=== PATIENT | female | born 1995 | race Two or more races ===

== ENCOUNTER 2021-04-19 09:32 | Inpatient (IN) ==
--- NOTE | 2021-04-19 10:04 | Emergency Department Note ---
History of Present Illness General Chief Complaint: Abdominal Pain Stated Complaint: ABDOMINAL PAIN Time Seen by Provider: 04/19/21 10:00 Source: patient and family Mode of arrival: ambulatory Limitations: no limitations History of Present Illness Provider Complaint: abdominal pain Onset (ago): week(s) Pain Consistency: constant Location: RUQ Radiation: none Migration to: no migration Severity: severe Maximum Pain Intensity: 9 Quality: + other (Strong) Relieved By: + nothing Exacerbated By: + eating Associated Symptoms: + nausea and + vomiting; no fever, no chills, no dysuria, no hematemesis, no hematuria, no headache, no back pain, no chest pain and no numbness Treatments prior to arrival: tylenol Related Data Last Menstrual Period: Last week Home Medications Medication Instructions Recorded Confirmed Type No Known Home Medications 04/19/21 04/19/21 History Allergies Allergy/AdvReac Type Severity Reaction Status Date / Time No Known Allergies Allergy Unverified 04/19/21 11:56 Past Med/Surg History Medical History (Updated 04/19/21 @ 16:37 by Bernabe Muro MD) No pertinent past medical history Surgical History (Updated 04/19/21 @ 10:41 by Bernabe Muro MD) No pertinent past surgical history Social History (Updated 04/19/21 @ 10:41 by Bernabe Muro MD) Smoking Status: Never smoker Hx Alcohol Use: Yes Hx Substance Use: No Preferred Language: Togolese Communication Tools: IPad Rig Supervisor Required: Yes Beliefs That Will Affect Care: None Current Living Situation: Family Feels Safe at Home: Yes Review of Systems See HPI for pertinent positives & negatives. and A total of 10 systems reviewed and were otherwise negative Physical Exam Vital Signs: Vital Signs - 24 hr 04/19/21 09:48 04/19/21 10:47 04/19/21 11:00 Temperature 36.4 C L Temperature Source Temporal Artery Sc an Pulse Rate 54 L 53 L 56 L Pulse Rate [Apical ] 54 L Pulse Rate from Sp O2 Sensor 53 L 56 L Pulse Rhythm Regular Pulse Rhythm [Apic al] Regular Pulse Strength Normal Pulse Strength [Ap ical] Normal Respiratory Rate 20 20 17 Respiratory Effort / Characteristics Non-Labored Non-Labored Sponta neous Respiratory Depth Normal Normal Respiratory Patter n Regular Regular Blood Pressure 113/56 L 112/67 100/59 L Blood Pressure [Le ft Arm] 100/59 L Blood Pressure Sherrell n 75 82 72 Blood Pressure Sherrell n [Left Arm] 72 Blood Pressure Pos ition Sitting Pulse Oximetry 99 98 98 Oxygen Delivery Me thod Room Air Room Air Sepsis Recent Feve r Within 48 Hours No Sepsis New/Unexpla ined Change in Men jessica Status No Sepsis Action Take n by Nursing No Action Required Physical Exam: GENERAL: Wearing a mask. NAD, non-toxic. EYE EXAM: Normal conjunctiva. PERRL, no anisocoria and EOM's grossly intact w/o pain. NECK: Supple, no nuchal rigidity, no adenopathy, non-tender. No signs of meningismus. LUNGS: Clear to auscultation. Normal chest wall mechanics. HEART: NSR, no MRG. ABDOMEN: Abdomen soft, right upper quadrant and epigastric pain, no lower abdominal pain, normo-active bowel sounds, no masses, no rebound or guarding. BACK: No CVA TTP. SKIN: No rashes and no bruising. UPPER EXTREMITIES: Upper extremities are grossly normal. LOWER EXTREMITIES: Grossly normal, no edema. NEURO EXAM: A&O x3, cranial nerves II-XII grossly intact, normal speech, moves all 4 extremities on command w/o issue. Course Course Cardiac monitoring: An order was placed for continuous cardiac monitoring. The monitor shows a rate of 65 with sinus rhythm. Administered Medications Ampicillin Sodium/Sulbactam Sodium 1,500 mg/ Sodium Chloride 104 mls @ 200 mls/hr IV Q6H [facility]; Protocol Stop: 04/29/21 15:59 Last Infusion: 04/19/21 16:27 Dose: 0 mls/hr Documented by: [id number] Admin: 04/19/21 15:41 Dose: 200 mls/hr Documented by: [id number] Dextrose/Lactated Ringer's (D5w And Lactated Ringers) 1,000 mls @ 125 mls/hr IV .Q8H MAHESH Stop: 04/20/21 06:35 Last Admin: 04/19/21 15:06 Dose: 125 mls/hr Documented by: [id number] Ondansetron HCl (Ondansetron Inj 2 Mg/Ml 2 Ml Vial) 4 mg IV Q6H PRN PRN Reason: Nausea Stop: 05/19/21 13:26 Last Admin: 04/19/21 15:06 Dose: 4 mg Documented by: [id number] Discontinued Medications Sodium Chloride (Nss) 500 mls @ 999 mls/hr IV .Q31M STA Stop: 04/19/21 10:55 Last Infusion: 04/19/21 11:26 Dose: 0 mls/hr Documented by: [id number] Admin: 04/19/21 10:40 Dose: 999 mls/hr Documented by: [id number] Famotidine (Pepcid 20mg Iv Push) 20 mg in 5 mls @ 2.5 mls/min IV NOW STA Stop: 04/19/21 10:26 Last Admin: 04/19/21 10:40 Dose: 2.5 mls/min Documented by: [id number] Morphine Sulfate (Morphine Sulfate 4 Mg/Ml 1 Ml Carp\Vial) 4 mg IV NOW STA Stop: 04/19/21 11:36 Last Admin: 04/19/21 12:14 Dose: 4 mg Documented by: [id number] Ondansetron HCl (Ondansetron Inj 2 Mg/Ml 2 Ml Vial) 4 mg IV NOW STA Stop: 04/19/21 10:26 Last Admin: 04/19/21 10:40 Dose: 4 mg Documented by: [id number] Medical Decision Making Differential Diagnosis Appendicitis, ovarian cyst, ovarian torsion, ectopic , TOA, PID, infections, diverticulitis, UTI, obstruction, mesenteric ischemia, aortic pathology, inflammatory bowel disease, renal colic, PUD, pancreatitis, biliary pathology, hernia, volvulus, constipation, as well as other pathologies. Medical Records Attestation: I reviewed the patient's medical records. Home Medications Current Medication List: was personally reviewed by me Laboratory Data Attestation: I reviewed the patient's lab results. Result diagrams: 04/19/21 10:41 04/19/21 10:41 Lab Results 04/19/21 04/19/21 04/19/21 Range/Units 10:41 10:41 10:41 WBC 3.10 L (4.8-10.8) K/uL RBC 4.79 (4.2-5.4) M/uL Hgb 15.0 (12.0-16.0) g/dL Hct 43.6 (37-47) % MCV 91.0 (80-100) fL MCH 31.3 (25-34) pg MCHC 34.4 (32-36) g/dL RDW Std Deviation 40.5 (36.4-46.3) fL RDW Coeff of Dorie 12.1 (11.5-14.5) % Plt Count 314 (130-400) K/uL MPV 10.1 (7.4-10.4) fL Immature Gran % (Auto) 0.0 % Neut % (Auto) 51.0 % Lymph % (Auto) 33.9 % [place] % (Auto) 11.9 % Eos % (Auto) 3.2 % Baso % (Auto) 0.0 % Neut # (Auto) 1.58 (1.4-6.5) K/uL Lymph # (Auto) 1.05 L (1.2-3.4) K/uL [place] # (Auto) 0.37 (0.11-0.59) K/uL Eos # (Auto) 0.10 (0-0.5) K/uL Baso # (Auto) 0.00 (0-0.2) K/uL Immature Gran # (Auto) 0.00 (0.00-0.02) K/uL Sodium 138 (136-145) mmol/L Potassium 3.9 (3.5-5.1) mmol/L Chloride 109 H (98-107) mmol/L Carbon Dioxide 27 (21-32) mmol/L Anion Gap 2.0 L (3-11) BUN 10 (7-18) mg/dl Creatinine 0.64 (0.6-1.2) mg/dl Est Cr Clr Drug Dosing Not Reportable Est GFR ( Amer) 144.8 ml/min Est GFR (Non-Af Amer) 124.9 ml/min BUN/Creatinine Ratio 15.0 (10-20) Glucose 104 H (70-99) mg/dl Calcium 9.1 (8.5-10.1) mg/dl Total Bilirubin 2.8 H (0.2-1) mg/dl AST 991 H (15-37) U/L ALT 1090 H (12-78) U/L Alkaline Phosphatase 172 H (45-117) U/L Troponin I < 0.015 (0-0.045) ng/ml Total Protein 7.4 (6.4-8.2) gm/dl Albumin 4.0 (3.4-5.0) gm/dl Globulin 3.4 (2.5-4.0) gm/dl Albumin/Globulin Ratio 1.2 (0.9-2) Lipase 106 (73-393) U/L Urine Color Dark Yellow Urine Appearance Clear (Clear) Urine pH 6.5 (4.5-7.5) Ur Specific [place] 1.017 (1.000-1.030) Urine Protein Negative (Negative) Urine Glucose (UA) Negative (Negative) Urine Ketones Negative (Negative) Urine Blood Negative (Negative) Urine Nitrite Negative (Negative) Urine Bilirubin 1+ H (Negative) Urine Urobilinogen Negative (Negative) Ur Leukocyte Esterase Negative (Negative) Urine Test (Negative) COVID-19 Eval Order SARS-CoV-2 (PCR) (Negative) 04/19/21 04/19/21 04/19/21 Range/Units 10:41 12:13 12:13 WBC (4.8-10.8) K/uL RBC (4.2-5.4) M/uL Hgb (12.0-16.0) g/dL Hct (37-47) % MCV (80-100) fL MCH (25-34) pg MCHC (32-36) g/dL RDW Std Deviation (36.4-46.3) fL RDW Coeff of Dorie (11.5-14.5) % Plt Count (130-400) K/uL MPV (7.4-10.4) fL Immature Gran % (Auto) % Neut % (Auto) % Lymph % (Auto) % [place] % (Auto) % Eos % (Auto) % Baso % (Auto) % Neut # (Auto) (1.4-6.5) K/uL Lymph # (Auto) (1.2-3.4) K/uL [place] # (Auto) (0.11-0.59) K/uL Eos # (Auto) (0-0.5) K/uL Baso # (Auto) (0-0.2) K/uL Immature Gran # (Auto) (0.00-0.02) K/uL Sodium (136-145) mmol/L Potassium (3.5-5.1) mmol/L Chloride (98-107) mmol/L Carbon Dioxide (21-32) mmol/L Anion Gap (3-11) BUN (7-18) mg/dl Creatinine (0.6-1.2) mg/dl Est Cr Clr Drug Dosing Est GFR ( Amer) ml/min Est GFR (Non-Af Amer) ml/min BUN/Creatinine Ratio (10-20) Glucose (70-99) mg/dl Calcium (8.5-10.1) mg/dl Total Bilirubin (0.2-1) mg/dl AST (15-37) U/L ALT (12-78) U/L Alkaline Phosphatase (45-117) U/L Troponin I (0-0.045) ng/ml Total Protein (6.4-8.2) gm/dl Albumin (3.4-5.0) gm/dl Globulin (2.5-4.0) gm/dl Albumin/Globulin Ratio (0.9-2) Lipase (73-393) U/L Urine Color Urine Appearance (Clear) Urine pH (4.5-7.5) Ur Specific [place] (1.000-1.030) Urine Protein (Negative) Urine Glucose (UA) (Negative) Urine Ketones (Negative) Urine Blood (Negative) Urine Nitrite (Negative) Urine Bilirubin (Negative) Urine Urobilinogen (Negative) Ur Leukocyte Esterase (Negative) Urine Test Negative (Negative) COVID-19 Eval Order Covid19 at [facility] SARS-CoV-2 (PCR) NEGATIVE (Negative) Imaging Data Radiologist's Impression: Gallbladder Ultrasound 04/19/21 10:25 US gallbladder CLINICAL HISTORY: RUQ/epigastric pain COMPARISON STUDY: No previous studies for comparison. FINDINGS: No hepatic lesions are present. There is mild intrahepatic biliary ductal dilatation. The common bile duct is dilated, measuring 1.1 cm in caliber. No common bile duct calculi are identified although these may be occult by sonography. There are multiple gallstones within the gallbladder including a nonmobile gallstones within the gallbladder neck as well as stones within the phrygian cap. Moderate gallbladder wall thickening is noted. Sonographic Gamez sign was reported. The pancreatic body is normal. Head and tail are obscured. There is no right hydronephrosis. IMPRESSION: 1. Cholelithiasis with gallbladder wall thickening and sonographic Gamez sign. These findings raise the possibility of acute cholecystitis. 2. Biliary ductal dilatation. No common bile duct calculi identified although these may be occult by sonography and correlation with liver function tests is recommended. 3. Partially obscured pancreas. ACT 112: Negative or not required by law. Electronically signed by: Dwayne Carranza M.D. 04/19/2021 11:28 AM MDM Narrative Patient does present with at bedside due to concern for right upper quadrant epigastric pain has been going on for greater than 1 week. It seems to be worsening with eating. Patient localizes to right upper quadrant and epigastric area. No recent sick contacts but [place] the [place] Tylenol has not improved her symptoms. The patient did have one episode of vomiting. No blood in the vomit or stool. No dysuria or hematuria. No history of kidney stones. No prior history of surgeries no medical problems no allergies. Patient was seen at [facility] and referred here for further evaluation and treatment. Blood work was obtained along with a right upper quadrant ultrasound the patient was treated symptomatically. Patient does have transaminitis with elevated bilirubin. Lipase is normal. There is concern for gallstones given that the patient does have a likely acute cholecystitis. Patient also may have an obstruction secondary to gallstones given the patient's elevated LFTs. I did speak with the on-call general surgeon Dr. Herzog who recommended speaking with medicine and GI will will likely need to be consulted. I did speak with the hospitalist Dr. Lee. The patient was admitted to the medicine service. Impression & Plan Acute cholecystitis due to biliary calculus, Choledocholithiasis Discharge Plan Visit Data Chief Complaint: Abdominal Pain Stated Complaint: ABDOMINAL PAIN ED Provider: Bernabe Muro Discharge Problem: Acute cholecystitis due to biliary calculus, Choledocholithiasis Patient Disposition: Admitted As Inpatient Discharge Instructions Interventions: ED Discharge Assessment Last Done: 04/19/21 14:31
[2021-04-19] MEDS ORDERED: FAMOTIDINE 20MG IV PUSH 20 MG/5 ML SYR IV STA (10:25)
[2021-04-19] MEDS ORDERED: SODIUM CHLORIDE 0.9% 500 ML IV STA (10:25)
[2021-04-19] MEDS ORDERED: ONDANSETRON INJ 2 MG/ML 2 ML VIAL IV STA (10:25)
[2021-04-19 10:54] LABS: Eosinophils % (auto) 3.2 %; Hematocrit (blood only) 43.6 % (37-47); Lymphocytes # (auto) 1.05 K/uL (1.2-3.4); Lymphocytes % (auto) 33.9 %; Mean Corpuscular Hemoglobin 31.3 pg (25-34); Mean Corpuscular Hgb Conc 34.4 g/dL (32-36); Mean Platelet Volume 10.1 fL (7.4-10.4); Monocytes # (auto) 0.37 K/uL (0.11-0.59); Monocytes % (auto) 11.9 %; Neutrophils # (auto) 1.58 K/uL (1.4-6.5); Platelet Count 314 K/uL (130-400); RDW Coefficient of Variation 12.1 % (11.5-14.5); RDW Standard Deviation 40.5 fL (36.4-46.3); Red Blood Count 4.79 M/uL (4.2-5.4)
[2021-04-19 10:58] LABS: Appearance Urine Clear (Clear); Blood Urine Negative (Negative); Color Urine Dark Yellow; Glucose Urine UA Negative (Negative); Ketones Urine Negative (Negative); Leukocyte Esterase Urine Negative (Negative); Nitrite Urine Negative (Negative); Protein Urine Negative (Negative); Specific Gravity Urine 1.017 (1.000-1.030); Urobilinogen Urine Negative (Negative); pH Urine 6.5 (4.5-7.5)
[2021-04-19 11:02] LABS: Bilirubin Urine 1+ (Negative); Pregnancy Test, Urine Negative (Negative)
[2021-04-19 11:16] LABS: Blood Urea Nitrogen 10 mg/dl (7-18); Calcium 9.1 mg/dl (8.5-10.1); Carbon Dioxide 27 mmol/L (21-32); Chloride 109 mmol/L (98-107); Est GFR (African American) 144.8 ml/min; Est GFR (Non-African American) 124.9 ml/min; Glucose 104 mg/dl (70-99); Lipase 106 U/L (73-393); Potassium 3.9 mmol/L (3.5-5.1); Sodium 138 mmol/L (136-145)
[2021-04-19 11:24] LABS: Alanine Aminotransferase 1090 U/L (12-78); Albumin Globulin Ratio 1.2 (0.9-2); Alkaline Phosphatase 172 U/L (45-117); Aspartate Aminotransferase 991 U/L (15-37); Bilirubin,Total 2.8 mg/dl (0.2-1); Globulin 3.4 gm/dl (2.5-4.0); Total Protein 7.4 gm/dl (6.4-8.2); Troponin I < 0.015 ng/ml (0-0.045)
--- NOTE | 2021-04-19 11:29 | Ultrasound Report ---
US gallbladder CLINICAL HISTORY: RUQ/epigastric pain COMPARISON STUDY: No previous studies for comparison. FINDINGS: No hepatic lesions are present. There is mild intrahepatic biliary ductal dilatation. The c ommon bile duct is dilated, measuring 1.1 cm in caliber. No common bile duct calculi are identified a lthough these may be occult by sonography. There are multiple gallstones within the gallbladder inclu ding a nonmobile gallstones within the gallbladder neck as well as stones within the phrygian cap. Mo derate gallbladder wall thickening is noted. Sonographic Gamez sign was reported. The pancreatic bod y is normal. Head and tail are obscured. There is no right hydronephrosis. IMPRESSION: 1. Cholelithiasis with gallbladder wall thickening and sonographic Gamez sign. These findings raise the possibility of acute cholecystitis. 2. Biliary ductal dilatation. No common bile duct calculi identified although these may be occult by sonography and correlation with liver function tests is recommended. 3. Partially obscured pancreas. ACT 112: Negative or not required by law. Electronically signed by: Dwayne Carranza M.D. 04/19/2021 11:28 AM
[2021-04-19] MEDS ORDERED: MoRPHine SULFATE 4 MG/ML 1 ML CARP\\VIAL IV STA (11:35)
--- NOTE | 2021-04-19 13:44 | Surgery Consultation ---
Date of Consultation April 19, 2021 Assessment & Plan (1) Acute cholecystitis due to biliary calculus: Patient with acute cholecystitis and dilated common bile duct with abnormal liver function studies She will need a GI evaluation and possible ERCP At some point we will proceed with laparoscopic cholecystectomy which I have discussed with the patient's And he discussed it with her as she does not speak Nepalese well She appears to be comfortable at present time History of Present Illness History of Present Illness 25-year-old female with abdominal pain and right upper quadrant pain Abnormal ultrasound and laboratories consistent with acute cholecystitis and possible Common bile duct obstruction Her LFTs are significantly abnormal Ultrasound shows a thickened gallbladder with multiple stones positive Gamez sign Allergies Allergy/AdvReac Type Severity Reaction Status Date / Time No Known Allergies Allergy Unverified 04/19/21 11:56 Home Medications Medication Instructions Recorded Confirmed Type No Known Home Medications 04/19/21 04/19/21 History Patient History Medical History (Updated 04/19/21 @ 13:43 by Kel Herzog MD, FACS) No pertinent past medical history Surgical History (Updated 04/19/21 @ 10:41 by Bernabe Muro MD) No pertinent past surgical history Social History (Updated 04/19/21 @ 10:41 by Bernabe Muro MD) Smoking Status: Never smoker Hx Alcohol Use: No Hx Substance Use: No Preferred Language: Ethiopian Feels Safe at Home: Yes Review of Systems Review of Systems: All systems reviewed & are unremarkable except as noted in HPI & below Physical Exam Physical Exam: Right upper quadrant pain to palpation Constitutional: well developed and well nourished; no acute distress Eyes: + anicteric sclerae Respiratory: normal respiratory effort; no respiratory distress Cardiovascular: Rate/Rhythm: regular rate Gastrointestinal (Abdomen): Percussion/Palpation: abdomen soft Musculoskeletal: Gait: normal gait Skin: no rashes, warm and dry Neurologic: awake Psychiatric: Orientation: alert Results & Data ([facility]) Vital Signs (Past 12 Hours) Vital Signs Temp Pulse Pulse Resp BP BP Pulse Ox 04/19/21 13:33 51 L 16 105/72 99 04/19/21 11:00 56 L 17 100/59 L 98 04/19/21 10:47 53 L 54 L 20 112/67 100/59 L 98 04/19/21 09:48 36.4 C L 54 L 20 113/56 L 99 Laboratory Results I reviewed the patient's laboratories Diagnostic Findings I reviewed the patient's ultrasound PG Care Time/CCT Total # of Minutes Spent Total Time Spent with Patient: Total time spent is greater than 50% in coordination of care (as documented) at patient's floor/unit and/or counseling patient: Coding Level of Care Code 23695 Inpt Consult Level 4 Diagnoses Acute cholecystitis due to biliary calculus K80.00
--- NOTE | 2021-04-19 13:53 | History & Physical Report ---
Date of Service April 19, 2021 Assessment & Plan (1) Acute cholecystitis due to biliary calculus: Plan: 25 y/o F with no active medical issues. Presents with 2-3 days of upper quadrant abdominal pain and nausea. An abdominal US was obtained in the ER demonstrating cholelithiasis and cholecystitis. There is biliary duct dilation although a calculus could not be seen. Labs are consistent with an obstructive process and otherwise notable for mild leukopenia. The pt was afebrile on arrival. The pt was evaluated by surgery and will need a cholecystectomy. This will be preceded by a GI evaluation as she may need an ERCP and stone extraction initially. NPO, IVF, antiemetics, pain control, antibiotics provided. Full code - SCDs Total time for this admit including review of labs, meds, imaging, records - discussion with pt, surgeon and ER attending - 35 min History of Present Illness Chief Complaint: Abdominal pain and nausea Primary Care Provider: NO PCP 25 y/o F with no active medical issues. Presents with 2-3 days of upper quadrant abdominal pain and nausea. An abdominal US was obtained in the ER d emonstrating cholelithiasis and cholecystitis. There is biliary duct dilation although a calculus could not be seen. Labs are consistent with an obstructive process and otherwise notable for mild leukopenia. The pt was afebrile on arrival. PMH/surgical: She denies any active medical issues and has not previously had surgery. Social: Does not smoke, rare ETOH. She hails from [place] and speaks Occitan only Family: Both parents are alive and well. Allergies Allergy/AdvReac Type Severity Reaction Status Date / Time No Known Allergies Allergy Unverified 04/19/21 11:56 Home Medications Medication Instructions Recorded Confirmed Type No Known Home Medications 04/19/21 04/19/21 History Past Med/Surg History Medical History (Updated 04/19/21 @ 13:43 by Kel Herzog MD, FACS) No pertinent past medical history Surgical History (Updated 04/19/21 @ 10:41 by Bernabe Muro MD) No pertinent past surgical history Social History (Updated 04/19/21 @ 10:41 by Bernabe Muro MD) Smoking Status: Never smoker Hx Alcohol Use: No Hx Substance Use: No Preferred Language: Occitan Feels Safe at Home: Yes Review of Systems Review of Systems: Gen: Denies fevers, night sweats, rigors, fatigue, malaise, weight loss/gain ENT: Denies congestion, throat pain, hearing loss Eyes: Denies acute visual changes CV: Denies CP, palpitations Pulmonary: Denies SOB, cough, wheezing GI: Abdominal pain and nausea as above Neuro: Denies acute or unilateral weakness, acute gait impairment, headache or acute visual changes Musculoskeletal: Denies joint pain, inflammation Endocrine: Denies polydipsia, polyuria Skin: Denies acute rashes or ulcers Physical Exam Physical Exam: General: AAO x 3, no distress ENT: No erythema or exudates, no thrush Eyes: WHITNEY, EOMI Head and neck: Normocephalic, atraumatic, No JVD, neck is supple. Chest/heart: Nontender, S1,2, RRR, no murmurs, no gallops Lungs: CTAB, no wheezing or crackles Abdomen: There is uper quadrant tenderness Neuro: AAO x 3, speech is clear, no unilateral weakness or loss of sensation, coordination intact Musculoskeletal: No joint inflammation, muscle tenderness, FROM Skin: No acute rashes or ulcers Extremities: No clubbing, cyanosis, edema Results & Data Results & Data ([facility]) Vital Signs (Past 12 Hours) Vital Signs Temp Pulse Pulse Resp BP BP Pulse Ox 04/19/21 13:33 51 L 16 105/72 99 04/19/21 11:00 56 L 17 100/59 L 98 04/19/21 10:47 53 L 54 L 20 112/67 100/59 L 98 04/19/21 09:48 97.5 F L 54 L 20 113/56 L [address] abd: 1. Cholelithiasis with gallbladder wall thickening and sonographic Gamez sign. These findings raise the possibility of acute cholecystitis. 2. Biliary ductal dilatation. No common bile duct calculi identified although these may be occult by sonography and correlation with liver function tests is recommended. 3. Partially obscured pancreas. Code Status & VTE Plan VTE Prophylaxis Plan VTE Prophylaxis will be ordered: Yes PG Care Time/CCT Total # of Minutes Spent Total Time Spent with Patient: Total time spent is greater than 50% in coordination of care (as documented) at patient's floor/unit and/or counseling patient: Coding Level of Care Code 47538 Initial Inpt Care Lvl 3 Diagnoses Acute cholecystitis due to biliary calculus K80.00
[2021-04-19] MEDS: ONDANSETRON INJ 2 MG/ML 2 ML VIAL IV PRN (15:06)
[2021-04-19] MEDS: D5W AND LACTATED RINGERS 1,000 ML IV SCH (15:06)
[2021-04-19] MEDS: AMPICILLIN/SULBACTAM SOD 1,500 MG in 0.9 % SODIUM CHLORIDE 100 ML IV SCH ×2 (15:41→22:20)
--- NOTE | 2021-04-19 16:32 | Gastrointestinal Consultation ---
Date of Consultation April 19, 2021 Assessment & Plan (1) Choledocholithiasis: Patient with a history of abdominal pain and a significant elevation in her liver associated enzymes. The liver test elevation is slightly out of range for what would be normally expected with choledocholithiasis. However the patient is quite young and this is a distinct possibility given the dilated common bile duct and cholelithiasis seen on the ultrasound. I would suggest that we arrange ERCP for tomorrow morning and make arrangements for a stat MRCP to better evaluate her common bile duct. Recommendations N.p.o. Continue antibiotic coverage Stat MRCP please ERCP arranged for tomorrow Please avoid anticoagulants Please call with any questions or concerns History of Present Illness Reason for Consultation: Abdominal pain Requesting Physician: Dr. Herzog and Dr. Lee Attending Physician: Zane Lee MD History of Present Illness Translation services were made available to this patient as she speaks limited Kenyan. I was able to use a assistant speech language pathologist via an iPad. The patient is a 25-year-old female who has had abdominal discomfort for approximately 1 week. She notes that the pain is mid epigastric and can wax and wane throughout the day. The pain is typically worse with meals. She notes that she is also had some nausea but denies any emesis. She has no prior surgical history fevers chills sweats or medication changes. The patient does not have any tattoos nor recent history of IV drug abuse. Allergies Allergy/AdvReac Type Severity Reaction Status Date / Time No Known Allergies Allergy Unverified 04/19/21 11:56 Home Medications Medication Instructions Recorded Confirmed Type No Known Home Medications 04/19/21 04/19/21 History Patient History Medical History (Updated 04/19/21 @ 16:31 by Cabrera Salazar DO) No pertinent past medical history Surgical History (Updated 04/19/21 @ 10:41 by Bernabe Muro MD) No pertinent past surgical history Social History (Updated 04/19/21 @ 10:41 by Bernabe Muro MD) Smoking Status: Never smoker Hx Alcohol Use: Yes Hx Substance Use: No Preferred Language: Hungarian Communication Tools: IPad Vest Backer Required: Yes Beliefs That Will Affect Care: None Current Living Situation: Family Feels Safe at Home: Yes Review of Systems Constitutional: + malaise; no fever and no sweats Respiratory: no change in sputum and no hemoptysis Cardiovascular: no chest pain and no dyspnea at rest Gastrointestinal: + abdominal pain and + nausea Genitourinary: no urinary frequency Integumentary: no rash Neurologic: no falls Psychiatric: no hopelessness Endocrine: no polydipsia Hematologic / Lymphatic: no coagulopathy Physical Exam Constitutional: WD/WN, vitals as above Eyes: mild scleral icterus noted Respiratory: normal respiratory effort, lungs clear to auscultation Cardiovascular: RRR, no murmur, no edema Gastrointestinal (Abdomen): Inspection/Auscultation: normal bowel sounds; abdomen not distended Percussion/Palpation: + abdomen tender and abdomen soft; abdomen not rigid Musculoskeletal: no cyanosis or clubbing, extremities motor strength 5/5 Skin: no rashes, warm and dry Results & Data ([facility]) Vital Signs (Past 12 Hours) Vital Signs Temp Pulse Pulse Pulse Resp BP BP 04/19/21 15:29 36.4 C L 63 15 04/19/21 13:33 51 L 16 105/72 04/19/21 11:00 56 L 17 100/59 L 04/19/21 10:47 53 L 54 L 20 112/67 100/59 L 04/19/21 09:48 36.4 C L 54 L 20 113/56 L BP Pulse Ox 04/19/21 15:29 110/75 98 04/19/21 13:33 99 04/19/21 11:00 98 04/19/21 10:47 98 04/19/21 09:48 99 Laboratory Results Laboratory Results - last 24 hr 04/19/21 04/19/21 04/19/21 10:41 10:41 10:41 WBC 3.10 L RBC 4.79 Hgb 15.0 Hct 43.6 MCV 91.0 MCH 31.3 MCHC 34.4 RDW Std Deviation 40.5 RDW Coeff of Dorie 12.1 Plt Count 314 MPV 10.1 Immature Gran % (Auto) 0.0 Neut % (Auto) 51.0 Lymph % (Auto) 33.9 [place] % (Auto) 11.9 Eos % (Auto) 3.2 Baso % (Auto) 0.0 Neut # (Auto) 1.58 Lymph # (Auto) 1.05 L [place] # (Auto) 0.37 Eos # (Auto) 0.10 Baso # (Auto) 0.00 Immature Gran # (Auto) 0.00 Sodium 138 Potassium 3.9 Chloride 109 H Carbon Dioxide 27 Anion Gap 2.0 L BUN 10 Creatinine 0.64 Est Cr Clr Drug Dosing Not Reportable Est GFR ( Amer) 144.8 Est GFR (Non-Af Amer) 124.9 BUN/Creatinine Ratio 15.0 Glucose 104 H Calcium 9.1 Total Bilirubin 2.8 H AST 991 H ALT 1090 H Alkaline Phosphatase 172 H Troponin I < 0.015 Total Protein 7.4 Albumin 4.0 Globulin 3.4 Albumin/Globulin Ratio 1.2 Lipase 106 Urine Color Dark Yellow Urine Appearance Clear Urine pH 6.5 Ur Specific [place] 1.017 Urine Protein Negative Urine Glucose (UA) Negative Urine Ketones Negative Urine Blood Negative Urine Nitrite Negative Urine Bilirubin 1+ H Urine Urobilinogen Negative Ur Leukocyte Esterase Negative Urine Test COVID-19 Eval Order SARS-CoV-2 (PCR) 04/19/21 04/19/21 04/19/21 10:41 12:13 12:13 WBC RBC Hgb Hct MCV MCH MCHC RDW Std Deviation RDW Coeff of Dorie Plt Count MPV Immature Gran % (Auto) Neut % (Auto) Lymph % (Auto) [place] % (Auto) Eos % (Auto) Baso % (Auto) Neut # (Auto) Lymph # (Auto) [place] # (Auto) Eos # (Auto) Baso # (Auto) Immature Gran # (Auto) Sodium Potassium Chloride Carbon Dioxide Anion Gap BUN Creatinine Est Cr Clr Drug Dosing Est GFR ( Amer) Est GFR (Non-Af Amer) BUN/Creatinine Ratio Glucose Calcium Total Bilirubin AST ALT Alkaline Phosphatase Troponin I Total Protein Albumin Globulin Albumin/Globulin Ratio Lipase Urine Color Urine Appearance Urine pH Ur Specific [place] Urine Protein Urine Glucose (UA) Urine Ketones Urine Blood Urine Nitrite Urine Bilirubin Urine Urobilinogen Ur Leukocyte Esterase Urine Test Negative COVID-19 Eval Order Covid19 at [facility] SARS-CoV-2 (PCR) NEGATIVE Diagnostic Findings US gallbladder CLINICAL HISTORY: RUQ/epigastric pain COMPARISON STUDY: No previous studies for comparison. FINDINGS: No hepatic lesions are present. There is mild intrahepatic biliary ductal dilatation. The common bile duct is dilated, measuring 1.1 cm in caliber. No common bile duct calculi are identified although these may be occult by sonography. There are multiple gallstones within the gallbladder including a nonmobile gallstones within the gallbladder neck as well as stones within the phrygian cap. Moderate gallbladder wall thickening is noted. Sonographic Gamez sign was reported. The pancreatic body is normal. Head and tail are obscured. There is no right hydronephrosis. IMPRESSION: 1. Cholelithiasis with gallbladder wall thickening and sonographic Gamez sign. These findings raise the possibility of acute cholecystitis. 2. Biliary ductal dilatation. No common bile duct calculi identified although these may be occult by sonography and correlation with liver function tests is recommended. 3. Partially obscured pancreas.
--- NOTE | 2021-04-19 18:00 | Magnetic Resonance Report ---
MRCP CLINICAL HISTORY: Right upper quadrant pain. Epigastric pain. TECHNIQUE: Utilizing a 1.5 Katerin magnet and dedicated coil, multiplanar, multiecho imaging of the up er abdomen was performed utilizing heavily T2 weighted pulsing sequences without IV contrast. COMPARISON STUDY: Right upper quadrant ultrasound performed earlier today. FINDINGS: There are multiple gallstones within the gallbladder, including a 2.1 cm stone within a phr ygian cap. The gallbladder is distended. There is gallbladder wall thickening with pericholecystic fl uid. Note is made of moderate biliary ductal dilatation. The common bile duct measures 1.1 cm in davey can. Multiple distal common bile duct calculi measure up to approximately 6 mm. There is no pancreati c ductal dilatation. There is no peripancreatic infiltration or fluid. No hepatic lesions are identif ied on unenhanced exam. Unenhanced images of the spleen, adrenal glands and kidneys are normal. There is no abdominal lymphadenopathy. IMPRESSION: 1. Multiple distal common bile duct calculi which measure up to approximately 6 mm. Associated modera te biliary ductal dilatation. 2. Cholelithiasis with gallbladder distention and gallbladder wall thickening with pericholecystic fl uid. The findings suggest acute cholecystitis. ACT 112: Negative or not required by law. Electronically signed by: Dwayne Carranza M.D. 04/19/2021 5:59 PM
[2021-04-20] MEDS: D5W AND LACTATED RINGERS 1,000 ML IV SCH (00:25)
[2021-04-20] MEDS: AMPICILLIN/SULBACTAM SOD 1,500 MG in 0.9 % SODIUM CHLORIDE 100 ML IV SCH ×4 (03:40→21:11)
[2021-04-20] MEDS ORDERED: MIDAZOLAM HCL 1 MG/ML 2ML VIAL ONE (08:12)
[2021-04-20] MEDS ORDERED: PROPOFOL IV EMULSION 10 MG/ML 20 ML VIAL IV ONE (08:12)
[2021-04-20] MEDS ORDERED: GLYCOPYRROLATE 0.2 MG/ML VIAL ONE (08:12)
[2021-04-20] MEDS ORDERED: ONDANSETRON INJ 2 MG/ML 2 ML VIAL ONE (08:12)
[2021-04-20] MEDS ORDERED: ROCURONIUM BROMIDE 10 MG/ML 5 ML VIAL IV ONE (08:12)
[2021-04-20] MEDS ORDERED: LARYING-O-JET KIT (LTA) ONE (08:12)
[2021-04-20] MEDS ORDERED: fentaNYL citrate 100 MCG/2 ML VIAL ONE ×2 (08:12→10:22)
[2021-04-20] MEDS ORDERED: NEOSTIGMINE METHYLSULFATE 1 MG/ML 10ML VIAL ONE (08:12)
[2021-04-20] MEDS ORDERED: LIDOCAINE 2% 2 ML VIAL/AMP(20MG/ML) INFIL ONE (08:12)
[2021-04-20] MEDS ORDERED: DEXAMETHASONE SOD INJ 4 MG/ML VIAL ONE (08:13)
[2021-04-20] MEDS ORDERED: BUPIVACAINE 0.5 % 5 MG/1 ML MPF 30ML VIAL ONE (08:17)
--- NOTE | 2021-04-20 08:29 | History & Physical Bridge Note ---
Date of Service April 20, 2021 History & Physical Bridge Note I have examined the patient, reviewed the History & Physical and in the interval since the performance of the History & Physical I have noted the following changes of clinical significance: no changes noted. The patient and I have discussed the risks and benefits of the procedure to include bleeding, infection, perforation, pancreatitis and need for follow-up studies. A speech and language specialist was used for her consent process.
--- NOTE | 2021-04-20 08:42 | Anesthesiology Consultation ---
Date of Service April 20, 2021 Cymro speaking. Managed Services Sales Consultant used. Assessment & Plan (1) Encounter for pre-operative examination: Chart Review Chart Review: Acceptable Risk for Surgery and Patient NOT seen in Pre Admission Testing Consults Requested none ASA ASA2 Proposed Anesthesia Anesthesia Type: General Risk / Benefits Reviewed With: PT / POA / Parent / Guardian, Accepts Plan and Informed Consent Obtained (used welt pocket machine operator) History Surgery Operation Date: 04/20/21 10:00 Proposed Procedures p Endoscopic Retrograde Cholangiopancreato - DO kyaw [place] Laparoscopic Cholecystectomy - Kel Herzog MD, FACS Height/Weight Height: 4 ft 11 in Weight: 54.6 kg Allergies Allergy/AdvReac Type Severity Reaction Status Date / Time No Known Allergies Allergy Unverified 04/19/21 11:56 Medications Home Medications Medication Instructions Recorded Confirmed Last Taken No Known Home Medications 04/19/21 04/19/21 Unknown Active Medications Generic Name Dose Route Start Last Admin Trade Name Freq PRN Reason Stop Dose Admin Ampicillin Sodium/Sulbactam 104 mls @ 200 mls/hr 04/19/21 16:00 04/20/21 04:12 Sodium 1,500 mg/ Sodium IV 04/29/21 15:59 Infused Chloride Q6H MAHESH Infusion Protocol Ondansetron HCl 4 mg 04/19/21 13:27 04/19/21 15:06 Ondansetron Inj 2 Mg/Ml 2 Ml Vial IV 05/19/21 13:26 4 mg Q6H PRN Administration Nausea NPO Date Last Intake of Fluids: 04/19/21 Time Last Intake of Fluids: 19:00 Date Last Intake of Solids: 04/18/21 Time Last Intake of Solids: 20:00 Past Medical History Medical History (Updated 04/20/21 @ 08:54 by Wilbert Yang MD) Acute cholecystitis due to biliary calculus Exercise / Class Metabolic Activity II 4-5 Yardwork/Stairs/Walk up hill Past Surgical History Surgical History (Updated 04/19/21 @ 10:41 by Bernabe Muro MD) No pertinent past surgical history Past Anesthesia History No Hx of Anesthesia Complications and No Family Hx of Anesthesia Complications History of PONV No Hx of PONV and No Hx of Motion Sickness Social History Smoking Status: Never smoker Hx Alcohol Use: Yes alcohol intake frequency: holidays/special occasions only Hx Substance Use: No substance use type: does not use Review of Systems no chest pain or sob Physical Exam Vital Signs Last Vital Signs Temp 36.9 C 04/20/21 07:12 Pulse 85 04/20/21 07:12 Resp 16 04/20/21 07:12 BP 99/62 L 04/20/21 07:12 Pulse Ox 93 04/20/21 07:12 ENMT Mouth: no TMJ abnormality Thyromental Distance: > or= 3.5 Finger Breadths Mallampati Class: II Neck normal visual inspection Respiratory normal respiratory effort Auscultation: lungs clear to auscultation bilaterally Cardiovascular Rate/Rhythm: regular rate and regular rhythm Neurologic moves all extremities Psychiatric Orientation: alert and oriented x 3 Testing Laboratory Results 04/19/21 10:41 04/19/21 10:41 Urine Color Dark Yellow 04/19/21 10:41 Urine Appearance Clear (Clear) 04/19/21 10:41 Urine pH 6.5 (4.5-7.5) 04/19/21 10:41 Ur Specific [place] 1.017 (1.000-1.030) 04/19/21 10:41 Urine Protein Negative (Negative) 04/19/21 10:41 Urine Glucose (UA) Negative (Negative) 04/19/21 10:41 Urine Ketones Negative (Negative) 04/19/21 10:41 Urine Nitrite Negative (Negative) 04/19/21 10:41 Ur Leukocyte Esterase Negative (Negative) 04/19/21 10:41 Urine Test Negative (Negative) 04/19/21 10:41 04/19/21 10:41 Urine Test Negative
[2021-04-20] MEDS ORDERED: ONDANSETRON INJ 2 MG/ML 2 ML VIAL IV PRN ×2 (08:54→11:37)
[2021-04-20] MEDS ORDERED: fentaNYL citrate 100 MCG/2 ML VIAL IV PRN (08:54)
[2021-04-20] MEDS ORDERED: MEPERIDINE HCL 25 MG/ML CARP/VIAL IV PRN (08:54)
[2021-04-20] MEDS ORDERED: PHENYLEPHRINE 100MCG/ML 5ML SYR IV PRN (08:54)
[2021-04-20] MEDS ORDERED: HYDROmorphone INJ 1 MG/ML SYRINGE IV PRN (08:54)
[2021-04-20] MEDS ORDERED: ATROPINE SULFATE 0.1 MG/ML 10ML SYR IV PRN (08:54)
[2021-04-20] MEDS ORDERED: LABETALOL HCL IV 5 MG/ML 20ML IV PRN (08:54)
[2021-04-20] MEDS ORDERED: ePHEDrine sulfate 50 MG/ML AMP IV PRN (08:54)
--- NOTE | 2021-04-20 08:57 | History & Physical Bridge Note ---
Date of Service April 20, 2021 History & Physical Bridge Note I have examined the patient, reviewed the History & Physical and in the interval since the performance of the History & Physical I have noted the following changes of clinical significance: no changes noted
[2021-04-20] MEDS ORDERED: ePHEDrine sulfate 50 MG/ML SYR ONE (09:09)
[2021-04-20] MEDS ORDERED: INDOMETHACIN 50 MG SUPP PR ONE (09:09)
--- NOTE | 2021-04-20 09:44 | Post Operative Brief Note ---
Immediate Post Op Note v1 Date of Surgery April 20, 2021 Pre & Post Diagnosis Operation Date: 04/20/21 10:00 Pre-Op Diagnosis: Choledocholithiasis Post-Op Diagnosis: Choledocholithiasis I identified the patient and participated in the time-out.: Yes Procedure Operation Date: 04/20/21 10:00 Actual Procedures p Endoscopic Retrograde Cholangiopancreatography(Not Applicable) - Cabrera Salazar DO Surgeon Cabrera Salazar DO Mushroom Growing Supervisor none Estimated Blood Loss 0 Findings Consistent with Post-Op Diagnosis
--- NOTE | 2021-04-20 09:48 | GI REPORT ---
Patient Name: Tati Mckeon Procedure Date: 04/20/2021 8:58 AM Date of : 1995 Admit Type: Inpatient Age: 25 Gender: Female Attending MD: Cabrera Salazar DO Procedure: ERCP Providers: Cabrera Salazar DO Referring MD: FORTINO JACQUES Indications: Abdominal pain of suspected biliary origin, Abnormal MRCP Medicines: General Anesthesia Complications: No immediate complications. Estimated blood loss: Minimal. Estimated Blood Loss: Estimated blood loss was minimal. Procedure: Pre-Anesthesia Assessment: - Prior to the procedure, a History and Physical was performed, and patient medications, allergies and sensitivities were reviewed. The patient's tolerance of previous anesthesia was reviewed. - The risks and benefits of the procedure and the sedation options and risks were discussed with the patient. All questions were answered and informed consent was obtained. - Patient identification and proposed procedure were verified prior to the procedure by the physician, the nurse and the collating machine operator. The procedure was verified in the procedure room. - Pre-procedure physical examination revealed no contraindications to sedation. - ASA Grade Assessment: II - A patient with mild systemic disease. - After reviewing the risks and benefits, the patient was deemed in satisfactory condition to undergo the procedure. - The anesthesia plan was to use general anesthesia. - Immediately prior to administration of medications, the patient was re-assessed for adequacy to receive sedatives. - The heart rate, respiratory rate, oxygen saturations, blood pressure, adequacy of pulmonary ventilation, and response to care were monitored throughout the procedure. - The physical status of the patient was re-assessed after the procedure. After obtaining informed consent, the scope was passed under direct vision. Throughout the procedure, the patient's blood pressure, pulse, and oxygen saturations were monitored continuously. The Scope was introduced through the mouth, and advanced to the duodenum and used to inject contrast into the bile duct. The ERCP was accomplished without difficulty. The patient tolerated the procedure well. Findings: The oncology physician assistant film was normal. The esophagus was successfully intubated under direct vision without detailed examination of the pharynx, larynx, and associated structures, and upper GI tract. The upper GI tract was grossly normal. The major papilla contained a stone. The bile duct was deeply cannulated with the short-nosed traction sphincterotome and guidewire. Contrast was injected. I personally interpreted the bile duct images. Contrast extended to the hepatic ducts. The main bile duct was mildly dilated, with a stone causing an obstruction. The largest diameter was 10 mm. The lower third of the main bile duct contained filling defect(s) thought to be a stone. Biliary sphincterotomy was made with a Fusion OMNI sphincterotome using ERBE electrocautery. There was no post-sphincterotomy bleeding. To discover objects, the biliary tree was swept with a 12 mm balloon and 15 mm balloon starting at the bifurcation. Many stones were removed. No stones remained. The endoscope was withdrawn from the patient. The total fluoroscopy exposure time was 1 minute and 29 seconds. Indomethacin 100 mg was given via suppository to decrease the risk of post-ERCP pancreatitis (PEP). Impression: - A stone was seen in the major papilla. - Choledocholithiasis was found. Complete removal was accomplished by biliary sphincterotomy and balloon extraction. - Indomethacin given to decrease risk of post-ERCP pancreatitis. Recommendation: - Avoid aspirin and nonsteroidal anti-inflammatory medicines for 1 week. - Clear liquid diet. - Observe patient's clinical course. Would suggest daily liver enzymes. Cabrera Salazar D.O. Cabrera Salazar, 04/20/2021 9:48:39 AM This report has been signed electronically. Note Initiated On: 04/20/2021 8:58 AM Number of Addenda: 0 I attest to the content of the Intraoperative Record and orders documented therein, exceptions below {[id number]}
--- NOTE | 2021-04-20 10:32 | Post Operative Brief Note ---
PG Immediate Post Op with CF Date of Surgery April 20, 2021 Pre & Post Diagnosis Operation Date: 04/20/21 10:00 Pre-Op Diagnosis: Choledocholithiasis; Acute Cholesystitis Post-Op Diagnosis: Choledocholithiasis; Acute Cholesystitis I identified the patient and participated in the time-out.: Yes Procedure Operation Date: 04/20/21 10:00 Actual Procedures p Endoscopic Retrograde Cholangiopancreatography(Not Applicable) - DO kyaw [place] Laparoscopic Cholecystectomy(Not Applicable) - Kel Herzog MD, FACS Surgeon Kel Herzog MD, FACS Inclined Railway Operator none Estimated Blood Loss 10 Findings Consistent with Post-Op Diagnosis Specimens Specimen Description: A. Gallbladder
[2021-04-20] MEDS ORDERED: ACETAMINOPHEN 1,000 MG/100 ML VIAL IV ONE ×2 (10:34→14:15)
--- NOTE | 2021-04-20 11:23 | Anesthesiology Progress Note ---
Date of Service April 20, 2021 Anesthesia Post Procedure Vital Signs Vital Signs: Temp Pulse Pulse Resp BP BP Pulse Ox 04/20/21 11:10 36.0 C L 62 15 126/86 95 04/20/21 11:00 56 L 16 123/82 99 04/20/21 10:50 54 L 15 106/69 99 04/20/21 10:40 36.3 C L 63 14 109/59 L 97 04/20/21 07:12 36.9 C 85 16 99/62 L 93 04/19/21 22:35 36.8 C 73 16 129/69 97 04/19/21 15:29 36.4 C L 63 15 110/75 98 04/19/21 13:33 51 L 16 105/72 99 Pain Intensity Right Upper Abdomen: Pain Intensity: 1 Transfer of Care Handoff Completed per policy Notes Mental Status: alert / awake / arousable Patient Amnestic to Procedure: Yes Nausea / Vomiting: adequately controlled Pain: adequately controlled Airway Patency, RR, SpO2: stable & adequate BP & HR: stable & adequate Hydration State: stable & adequate Anesthetic Complications: no major complications apparent and Pt Satisfied with anesthetic care Notes: The patient is awake and comfortable.
[2021-04-20] MEDS ORDERED: PROMETHAZINE HCL 12.5 MG in SODIUM CHLORIDE 0.9% 50 ML IV PRN (11:37)
[2021-04-20] MEDS ORDERED: PROMETHAZINE HCL 25 MG in SODIUM CHLORIDE 0.9% 50 ML IV PRN (11:37)
[2021-04-20] MEDS ORDERED: HYDROCODONE/ACETAMOPHEN 5/325MG TAB PO PRN (11:37)
[2021-04-20] MEDS: SODIUM CHLORIDE 0.9% 1000ML 1,000 ML IV SCH ×2 (12:12→23:20)
[2021-04-20] MEDS: ONDANSETRON INJ 2 MG/ML 2 ML VIAL IV PRN ×2 (12:12→17:14)
--- NOTE | 2021-04-20 12:17 | Operative Report (OR) ---
DATE OF PROCEDURE: 04/20/2021 NAME OF OPERATION: Laparoscopic cholecystectomy. PREOPERATIVE DIAGNOSIS: Acute cholecystitis. POSTOPERATIVE DIAGNOSIS: Acute cholecystitis. STAFF SURGEON: Kel Herzog MD. ANESTHESIA: General. DESCRIPTION OF PROCEDURE: The patient was brought in the operating room and placed on the operating table in supine position. Her abdomen was prepped and draped in the usual fashion. Actually, this w as after the patient had undergone an ERCP with stone removal from the common bile duct by Dr. Salazar . After her abdomen was prepped and draped, pneumatic stockings and orogastric tube were in place. 0.5% plain Marcaine was used to anesthetize all incisions. Incision was made above the umbilicus, ca rrying dissection down to the fascia, placing a Veress needle producing pneumoperitoneum. Under visu alization after 11 mm port placed, three 5 mm ports were placed, one cephalad and two laterally. Gal lbladder was grasped and retracted. It was very edematous and swollen consistent with acute cholecys titis. There were chronic adhesions to the gallbladder consistent with chronic inflammation. These were taken down. Dissection carried out the la nena hepatis, identifying a dilated cystic duct. As a note, I did decompress the gallbladder of bile, which was clear, indicating hydrops. Cystic duct was clipped and transected. The cystic artery was identified, clipped and transected. Then, the gallbla dder dissected away from the liver bed in the usual fashion. There was significant edema in the post erior wall. After appropriate hemostasis and irrigation, the gallbladder was placed in an Endobag, r emoved through the umbilical site. I did have to enlarge the skin and fascial incisions to remove th e large gallbladder. The fascia at the umbilicus closed using 0 PDS suture, subcutaneous tissue tay pproximated using 2-0 plain suture, then the skin reapproximated at all incisions using subcuticular 4-0 Monocryl and Dermabond. The patient was transferred to recovery room in stable condition. Job ID: [id number]
--- NOTE | 2021-04-20 13:12 | Fluoroscopy Report ---
FL ERCP biliary ductal CLINICAL HISTORY: ERCP IN OR/[facility] COMPARISON STUDY: Right upper quadrant ultrasound and MRCP April 19, 2021. FLUOROSCOPY TIME: 1 minute and 29 seconds. FLUOROSCOPIC IMAGES: 16 FINDINGS: Fluoroscopy was provided during ERCP. These images demonstrate cannulation of the common bi le duct. Filling defects within the distal common bile duct suggest calculi. Balloon sweep through th e common bile duct was performed. Intrahepatic bile ducts are minimally opacified. IMPRESSION: Fluoroscopy provided during ERCP. ACT 112: Negative or not required by law. Electronically signed by: Dwayne Carranza M.D. 04/20/2021 1:10 PM
[2021-04-20] MEDS: HYDROmorphone INJ 0.5 MG/0.5 ML SYR IV PRN ×2 (13:34→17:12)
[2021-04-20] MEDS ORDERED: ACETAMINOPHEN 1000 MG/100 ML IV IV ONE (14:03)
--- NOTE | 2021-04-20 17:37 | Communication Note ---
Date of Service: April 20, 2021 Patient briefly seen after just coming back from the OR. She is actively vomiting and excessively somnolent. She was admitted early this morning
--- NOTE | 2021-04-20 17:49 | Hospitalist Progress Note ---
Date of Service April 20, 2021 Assessment & Plan (1) Acute cholecystitis due to biliary calculus: Plan: 25 y/o F with no active medical issues. Presents with 2-3 days of upper quadrant abdominal pain and nausea. An abdominal US was obtained in the ER demonstrating cholelithiasis and cholecystitis. There is biliary duct dilation although a calculus could not be seen. Labs are consistent with an obstructive process and otherwise notable for mild leukopenia. The pt was afebrile on arrival. The patient was seen by both general surgery and GI and is status post ERCP/cholecystectomy (2) Choledocholithiasis: Plan: s/p ERCP and cholecystectomy (3) Vomiting: Plan: * Likely related to anesthesia * Antiemetics on board * Will follow (4) Elevated LFTs: Plan: * Likely secondary to choledocholithiasis * Follow-up labs in a.m. to trend * Should improve s/p ERCP Plan: * Treat vomiting with antiemetics (likely anesthesia induced) * Advance diet as tolerated * Trend LFTs * If patient tolerating oral intake and LFTs improved, consider likely discharge tomorrow Admission and Anticipated Discharge Date Admission Date: April 19, 2021 Subjective Patient seen on daily rounds today. History unobtainable from patient as she is just back from the OR thus is somnolent but arousable, she is actively vomiting, and she does not speak Cambodian. History obtained from the chart. She is a 25-year-old relatively healthy woman who presented to the ED after a 3 to 4-day period of abdominal pain with associated nausea. Lab data showed elevated LFTs with a total bilirubin of 2.8, AST 991, ALT 1090. Her lipase was normal. Ultrasound showed cholelithiasis with gallbladder wall thickening and mild perihepatic biliary ductal dilatation and a positive Gamez sign consistent with acute cholecystitis. In addition, there was biliary ductal dilatation. MRCP done showed multiple distal common bile duct calculi in addition to findings consistent consistent with cholecystitis Patient was subsequently hospitalized and subsequently underwent ERCP along with cholecystectomy by Drs. Salazar and Mino). She had an uneventful perioperative course but is currently vomiting. Does have promethazine and Zofran on order. Nurse actively administering. Review of Systems Review of Systems: unobtainable at present Physical Exam Physical Exam: limited as patient actively vomiting Genl: patient actively vomiting. She is somnolent but arousable Heart: no assessed as patient vomiting Lungs: no assessed as patient vomiting Abd: not assesed. Results & Data Results & Data ([facility]) Vital Signs (Past 12 Hours) Vital Signs Temp Pulse Pulse Resp BP Pulse Ox 04/20/21 14:31 36.8 C 59 L 16 121/78 92 04/20/21 13:27 36.6 C 64 16 129/89 98 04/20/21 12:27 36.8 C 64 16 131/87 98 04/20/21 12:02 36.7 C 60 16 143/90 H 96 04/20/21 11:30 36.4 C L 67 15 143/88 H 96 04/20/21 11:20 36.0 C L 63 16 123/86 96 04/20/21 11:10 36.0 C L 62 15 126/86 95 04/20/21 11:00 56 L 16 123/82 99 04/20/21 10:50 54 L 15 106/69 99 04/20/21 10:40 36.3 C L 63 14 109/59 L 97 04/20/21 07:12 36.9 C 85 16 99/62 L 93 Laboratory Results admission labs reviewed Diagnostic Findings admission diagnostics reviewed PG Care Time/CCT Total # of Minutes Spent Total Time Spent with Patient: Total time spent is greater than 50% in co ordination of care (as documented) at patient's floor/unit and/or counseling patient: Coding [place] [address] Subseq Hosp Care Lvl 1 Patient Type Established Medical Decision Making Straight Forward Diagnoses Acute cholecystitis due to biliary calculus K80.00 Vomiting R11.10 Elevated LFTs R79.89 Choledocholithiasis K80.50
--- NOTE | 2021-04-20 20:38 | Communication Note ---
Date of Service: April 20, 2021 Called to bedside by nursing staff for concerns of emesis with blood in it. Patient has been having multiple rounds/bouts of emesis since waking from surger y this afternoon. Patient reportedly had had 3 bouts of emesis prior to this current bloody one, all relatively small in nature and none of the previous ones contained blood. Upon my presentation to bedside, patient endorsed some abdominal pain associated around the incisions, with main concerns regarding the blood in her vomit. Did note that she was feeling slightly better following some of the nausea medicine but is nervous after surgery. On my examination, abdomen was soft and non-distended, positive bowel sounds, but with incisional tenderness. Incisions were clean dry and intact with dermabond over the top, no surrounding erythema, or fluctuance. Given the close time frame from laproscopic surgery with emesis, ordered KUB to further elucidate potential post-operative ileus concerns. Given potential post-operative ileus concerns will hold the diet at this point in time and continue to monitor. Anti-emetics available PRN to help control nausea and vomiting. Resident Activity Tracking Resident Involvement: Resident Care Provided Care Provided: Adult [facility]
--- NOTE | 2021-04-20 21:22 | XRay Report ---
XR KUB/Abdomen 1 view CLINICAL HISTORY: N/v abdominal pain COMPARISON STUDY: No previous studies for comparison. FINDINGS: Nondilated gas and stool-filled loops of bowel are seen throughout the abdomen There is no evidence of free intra-abdominal air, however please note that supine abdominal radiograp hy has limited ability for evaluation for the free intra-abdominal air. No abnormal calcifications are seen. Cholecystectomy clips are seen within the right upper quadrant. IMPRESSION: 1. Nonobstructive bowel gas pattern. ACT 112: Negative or not required by law. The above report was generated using voice recognition software. It may contain grammatical, syntax o r spelling errors. Electronically signed by: Jennifer Headley DO 04/20/2021 9:21 PM
[2021-04-20] MEDS ORDERED: PANTOprazole 40 MG in SYRINGE 0 ML IV STA (21:39)
[2021-04-20] MEDS ORDERED: METOCLOPRAMIDE HCL INJ 5 MG/ML 2 ML VIAL IV PRN (22:02)
--- NOTE | 2021-04-20 22:18 | Communication Note ---
Date of Service: April 20, 2021 I was asked to evaluate this patient by the [facility] physician group hospitalist resident at approximately 9:45 PM. I arrived at the bedside at approximately 9:55 PM. Chart was reviewed. Earlier today this patient underwent an ERCP by Dr. Salazar. ERCP report was reviewed and patient was noted to have a normal upper GI tract. A sphincterotomy was performed in the biliary tree was evaluated for choledocholithiasis and numerous gallstones were removed. No post sphincterotomy bleeding was noted. Following this procedure Dr. Herzog performed a laparoscopic cholecystectomy. Since patient's arrival to the floor she has had numerous bouts of reported hematemesis. I discussed with the nurse at the bedside I also evaluated the patient and discussed the patient's symptomatology with her utilizing the rim roller operator service as the patient does not speak any Mozambican. The nurse noted that earlier patient had some red hematemesis but subsequent episodes seem to have decreased and the emesis had more of a blackish color. The patient denies any chest pain, shortness of breath, or lightheadedness. Patient does note abdominal pain most pronounced in the right upper quadrant near some of her surgical incisions. She notes that she continues to have nausea since her surgery but it appears to be abating somewhat. Since her surgery the patient has only tried to eat some Jell-O which she was unable to keep down. Patient's vital signs were reviewed and she is noted to be hemodynamically stable without hypotension or tachycardia. Patient has already been evaluated by the product manager medical device from [facility] physician group. He has already performed a KUB which showed a nonobstructive bowel gas pattern and no free intraperitoneal air. A stat hemoglobin and hematocrit has been ordered and is pending. He has ordered 40 mg of intravenous Protonix to be administered. He has changed the patient's diet to n.p.o. status In addition to what the product manager medical device has ordered I will check a PRP and continue her Protonix at 40 mg IV every 12 hours for the present time. I verified with the nurse that the patient has IV fluids running. I requested that the nurse ensure the patient has two peripheral IVs in place. I suspect the patient has postoperative nausea vomiting secondary to her surgery and possibly side effects from anesthesia that have not yet cleared. She also may have an element of postoperative ileus. I suspect the blood in her emesis may be old blood related to her ERCP and sphincterotomy. We will continue to follow the patient clinically as well as check the above laboratories when they are available. We will advance her diet once her nausea vomiting has improved. If further concerns for GI bleed remain we will obtain input from the gastroenterology service.
[2021-04-20 22:39] LABS: Hematocrit (blood only) 37.5 % (37-47); Hemoglobin 12.9 g/dL (12.0-16.0)
--- NOTE | 2021-04-20 22:41 | Communication Note ---
Date of Service: April 20, 2021 I was asked to see the patient this evening for several episodes of hematemesis. The patient underwent both ERCP and cholecystectomy earlier today without initial complications. The patient was having some nausea and had several episodes of clear emesis earlier today. Despite this her diet was advanced and the patient later had hematemesis x2. Physical exam Emesis examined: Coffee-ground noted, no red blood seen in bag Patient somewhat sleepy, was given recent antiemetics Cardiac: Regular rate and rhythm Lungs: Clear Abdomen: Soft nontender no peritoneal signs Impression: Patient with report of hematemesis post procedures today. Based on the reports she had clear emesis several times followed by hematemesis, this is most consistent with a Ailyn-Arellano tear, typically Po sphincterotomy bleeding is manifest by melena. I would recommend continuing use of antiemetics, n.p.o. status, IV hydration as you are doing, and a Protonix drip please Recommendations N.p.o. CBC Protonix drip please Continue antiemetics as you are doing We will plan for upper endoscopy tomorrow with Dr. Mayen
[2021-04-20 23:00] LABS: BUN Creatinine Ratio 40.5 (10-20); Calcium 8.2 mg/dl (8.5-10.1); Creatinine Clr Calc Pharmacy 105.5 ml/min; Est GFR (African American) 146.3 ml/min; Est GFR (Non-African American) 126.2 ml/min; Potassium 3.7 mmol/L (3.5-5.1)
[2021-04-20] MEDS: PANTOprazole 40 MG in DEXTROSE 5% 100 ML IV SCH (23:54)
[2021-04-21] MEDS ORDERED: SODIUM CHLORIDE 0.9% 1000ML 1,000 ML IV ONE (04:00)
[2021-04-21] MEDS: PANTOprazole 40 MG in DEXTROSE 5% 100 ML IV SCH ×4 (04:20→19:29)
[2021-04-21] MEDS: AMPICILLIN/SULBACTAM SOD 1,500 MG in 0.9 % SODIUM CHLORIDE 100 ML IV SCH ×4 (04:39→21:27)
[2021-04-21] MEDS ORDERED: SODIUM CHLORIDE 0.9% 1000ML 1,000 ML IV SCH ×2 (05:00→06:15)
--- NOTE | 2021-04-21 05:55 | Surgery Progress Note ---
Date of Service April 21, 2021 Assessment & Plan (1) Pancreatitis: Plan: Patient status post ERCP with stone removal Status post laparoscopic cholecystectomy with severe acute cholecystitis Patient with hyperemesis last evening but has not vomited for over 6 hours Receiving Phenergan Her lipase is elevated over 5000 indicating likely pancreatitis She did have some hypotension which responded to IV fluids Currently her vital signs are stable her abdomen is soft but tender We will continue with IV hydration and limited p.o. Her labs are being drawn now we will check her H&H and others Close monitoring-she will require several extra days in the hospital Admission and Anticipated Discharge Date Admission Date: April 19, 2021 Results & Data ([facility]) Vital Signs (Past 12 Hours) Vital Signs Temp Pulse Resp BP BP Pulse Ox 04/21/21 04:41 75 90/53 L 94 04/21/21 03:22 37.2 C 86 20 78/46 L 69/37 L 93 04/20/21 23:18 37.1 C 89 14 105/71 94 04/20/21 19:30 36.6 C 64 18 102/69 94 PG Care Time/CCT Total # of Minutes Spent Total Time Spent with Patient: Total time spent is greater than 50% in coordination of care (as documented) at patient's floor/unit and/or counseling patient: Coding Level of Care Code None Diagnoses Pancreatitis K85.90
[2021-04-21 06:15] LABS: Hematocrit (blood only) 28.9 % (37-47); Hemoglobin 9.7 g/dL (12.0-16.0); Immature Granulocytes # (auto) 0.01 K/uL (0.00-0.02); Immature Granulocytes % (auto) 0.1 %; Lymphocytes % (auto) 14.9 %; Mean Corpuscular Hemoglobin 31.3 pg (25-34); Mean Corpuscular Hgb Conc 33.6 g/dL (32-36); Mean Corpuscular Volume 93.2 fL (80-100); Mean Platelet Volume 9.7 fL (7.4-10.4); Monocytes # (auto) 0.64 K/uL (0.11-0.59); Monocytes % (auto) 6.8 %; Neutrophils # (auto) 7.35 K/uL (1.4-6.5); Neutrophils % (auto) 78.2 %; Platelet Count 245 K/uL (130-400); RDW Coefficient of Variation 12.4 % (11.5-14.5); RDW Standard Deviation 42.4 fL (36.4-46.3)
[2021-04-21 07:03] LABS: Alanine Aminotransferase 445 U/L (12-78); Albumin Level 2.5 gm/dl (3.4-5.0); Alkaline Phosphatase 99 U/L (45-117); Aspartate Aminotransferase 100 U/L (15-37); BUN Creatinine Ratio 54.2 (10-20); Bilirubin,Total 0.9 mg/dl (0.2-1); Blood Urea Nitrogen 26 mg/dl (7-18); Calcium 6.8 mg/dl (8.5-10.1); Carbon Dioxide 26 mmol/L (21-32); Chloride 115 mmol/L (98-107); Creatinine Clr Calc Pharmacy 136.3 ml/min; Est GFR (African American) > 150.0 ml/min; Est GFR (Non-African American) 137.3 ml/min; Globulin 2.4 gm/dl (2.5-4.0); Glucose 90 mg/dl (70-99); Lipase 3242 U/L (73-393); Magnesium 1.5 mg/dl (1.8-2.4); Phosphorus 3.2 mg/dl (2.5-4.9); Potassium 3.5 mmol/L (3.5-5.1); Sodium 143 mmol/L (136-145); Total Protein 4.9 gm/dl (6.4-8.2)
[2021-04-21] MEDS ORDERED: PANTOprazole 40 MG in SYRINGE 0 ML IV SCH (09:00)
--- NOTE | 2021-04-21 09:07 | Gastroenterology Progress Note ---
Date of Service April 21, 2021 Assessment & Plan (1) Hematemesis: (2) Pancreatitis: (3) Choledocholithiasis: Plan: This is a 25 y/o female s/p ERCP with choledocholithiasis removed, s/p cholecystectomy, who had hyperemesis and hematemesis yesterday; none overnight. She was hydrated with IVF and HGB noted to be 9.7 today (12.9 yest), BUN 26, lipase was > 5 k yesterday, > 3 k today, with improvement in LFTs. This AM abd soft, no further GIB. VSS. - Plan for EGD today to evaluate hematemesis, r/o Ailyn Michelle Tear, PUD - Continue PPI - Supportive care with IVF - Antiemetics PRN - Analgesia PRN - Keep NPO - Trend H&H, transfuse PRN - Trend daiy LFTs, lipase - Monitor and document GI output Attg add: I interviewed and examined pt, reviewed chart and labs. Pt s/p ERCP yesterday now with hematemesis/hyperemesis post procedure that appears to have resolved. EGD today. Admission and Anticipated Discharge Date Admission Date: April 19, 2021 Subjective Pt seen and examined, chart reviewed. Overnight had no further episodes of vomiting, hematemesis. This AM complains of some abd discomfort, mainly around her incisions. No BMs or flatus. No melena, hematochezia, fever, chills, CP, SOB. She's NPO. Pt is a non-Uzbek speaker; visit completed through manager of it service - Les #[id number] Physical Exam Constitutional: WD/WN, vitals as above Respiratory: normal respiratory effort, lungs clear to auscultation Cardiovascular: RRR, no murmur, no edema Gastrointestinal (Abdomen): BS x 4 quadrants, abd soft, mild generalized tenderness, no rebound, guarding, distention Neurologic: awake alert and oriented to person, place, time events Results & Data ([facility]) Vital Signs (Past 12 Hours) Vital Signs Temp Pulse Resp BP BP Pulse Ox 04/21/21 07:59 36.7 C 95 H 14 95/60 L 94 04/21/21 06:08 81 102/67 04/21/21 04:41 75 90/53 L 94 04/21/21 03:22 37.2 C 86 20 78/46 L 69/37 L 93 04/20/21 23:18 37.1 C 89 14 105/71 94 Laboratory Results 04/21/21 04/21/21 04/20/21 Range/Units 05:58 05:58 22:16 WBC 9.40 (4.8-10.8) K/uL RBC 3.10 L (4.2-5.4) M/uL Hgb 9.7 L D (12.0-16.0) g/dL Hct 28.9 L (37-47) % MCV 93.2 (80-100) fL MCH 31.3 (25-34) pg MCHC 33.6 (32-36) g/dL RDW Std Deviation 42.4 (36.4-46.3) fL RDW Coeff of Dorie 12.4 (11.5-14.5) % Plt Count 245 (130-400) K/uL MPV 9.7 (7.4-10.4) fL Immature Gran % (Auto) 0.1 % Neut % (Auto) 78.2 % Lymph % (Auto) 14.9 % [place] % (Auto) 6.8 % Eos % (Auto) 0.0 % Baso % (Auto) 0.0 % Neut # (Auto) 7.35 H (1.4-6.5) K/uL Lymph # (Auto) 1.40 (1.2-3.4) K/uL [place] # (Auto) 0.64 H (0.11-0.59) K/uL Eos # (Auto) 0.00 (0-0.5) K/uL Baso # (Auto) 0.00 (0-0.2) K/uL Immature Gran # (Auto) 0.01 (0.00-0.02) K/uL Sodium 143 143 (136-145) mmol/L Potassium 3.5 3.7 (3.5-5.1) mmol/L Chloride 115 H 110 H (98-107) mmol/L Carbon Dioxide 26 27 (21-32) mmol/L Anion Gap 2.0 L 6.0 (3-11) BUN 26 H 25 H D (7-18) mg/dl Creatinine 0.48 L 0.62 (0.6-1.2) mg/dl Est Cr Clr Drug Dosing 136.3 105.5 ml/min Est GFR ( Amer) > 150.0 146.3 ml/min Est GFR (Non-Af Amer) 137.3 126.2 ml/min BUN/Creatinine Ratio 54.2 H 40.5 H (10-20) Glucose 90 121 H (70-99) mg/dl Calcium 6.8 L D 8.2 L (8.5-10.1) mg/dl Phosphorus 3.2 (2.5-4.9) mg/dl Magnesium 1.5 L (1.8-2.4) mg/dl Total Bilirubin 0.9 D (0.2-1) mg/dl AST 100 H (15-37) U/L ALT 445 H (12-78) U/L Alkaline Phosphatase 99 (45-117) U/L Total Protein 4.9 L D (6.4-8.2) gm/dl Albumin 2.5 L (3.4-5.0) gm/dl Globulin 2.4 L (2.5-4.0) gm/dl Albumin/Globulin Ratio 1.0 (0.9-2) Lipase 3242 H 5606 H (73-393) U/L // Range/Units 22:16 WBC (4.8-10.8) K/uL RBC (4.2-5.4) M/uL Hgb 12.9 (12.0-16.0) g/dL Hct 37.5 (37-47) % MCV (80-100) fL MCH (25-34) pg MCHC (32-36) g/dL RDW Std Deviation (36.4-46.3) fL RDW Coeff of Dorie (11.5-14.5) % Plt Count (130-400) K/uL MPV (7.4-10.4) fL Immature Gran % (Auto) % Neut % (Auto) % Lymph % (Auto) % [place] % (Auto) % Eos % (Auto) % Baso % (Auto) % Neut # (Auto) (1.4-6.5) K/uL Lymph # (Auto) (1.2-3.4) K/uL [place] # (Auto) (0.11-0.59) K/uL Eos # (Auto) (0-0.5) K/uL Baso # (Auto) (0-0.2) K/uL Immature Gran # (Auto) (0.00-0.02) K/uL Sodium (136-145) mmol/L Potassium (3.5-5.1) mmol/L Chloride (98-107) mmol/L Carbon Dioxide (21-32) mmol/L Anion Gap (3-11) BUN (7-18) mg/dl Creatinine (0.6-1.2) mg/dl Est Cr Clr Drug Dosing ml/min Est GFR ( Amer) ml/min Est GFR (Non-Af Amer) ml/min BUN/Creatinine Ratio (10-20) Glucose (70-99) mg/dl Calcium (8.5-10.1) mg/dl Phosphorus (2.5-4.9) mg/dl Magnesium (1.8-2.4) mg/dl Total Bilirubin (0.2-1) mg/dl AST (15-37) U/L ALT (12-78) U/L Alkaline Phosphatase (45-117) U/L Total Protein (6.4-8.2) gm/dl Albumin (3.4-5.0) gm/dl Globulin (2.5-4.0) gm/dl Albumin/Globulin Ratio (0.9-2) Lipase (73-393) U/L
[2021-04-21] MEDS: HYDROmorphone INJ 0.5 MG/0.5 ML SYR IV PRN (09:26)
--- NOTE | 2021-04-21 10:46 | Anesthesiology Consultation ---
Date of Service April 21, 2021 Assessment & Plan (1) Encounter for pre-operative examination: covid neg 04/19/21. hcg neg 04/19/21 Chart Review Chart Review: Acceptable Risk for Surgery and Patient NOT seen in Pre Admission Testing Consults Requested none History Surgery Operation Date: 04/20/21 10:00 Proposed Procedures p Endoscopic Retrograde Cholangiopancreato - DO kyaw [place] Laparoscopic Cholecystectomy - Kel Herzog MD, FACS Operation Date: 04/21/21 16:45 Proposed Procedures p Esophagogastroduodenoscopy Dr Wang - Mick Mayen MD Height/Weight Height: 4 ft 11 in Weight: 54.6 kg Allergies Allergy/AdvReac Type Severity Reaction Status Date / Time No Known Allergies Allergy Unverified 04/19/21 11:56 Medications Home Medications Medication Instructions Recorded Confirmed Last Taken No Known Home Medications 04/19/21 04/19/21 Unknown Active Medications Generic Name Dose Route Start Last Admin Trade Name Freq PRN Reason Stop Dose Admin Hydromorphone HCl 0.25 mg 04/19/21 14:36 04/21/21 09:26 Hydromorphone Inj 0.5 Mg/0.5 Ml Syr IV 05/03/21 14:35 0.25 mg Q3H PRN Administration Pain Ampicillin Sodium/Sulbactam 104 mls @ 200 mls/hr 04/19/21 16:00 04/21/21 09:28 Sodium 1,500 mg/ Sodium IV 04/29/21 15:59 200 mls/hr Chloride Q6H MAHESH Administration Protocol Promethazine HCl 12.5 mg/ 50.5 mls @ 204 mls/hr 04/20/21 11:37 04/20/21 19:39 Sodium Chloride IV 05/20/21 11:36 Infused Q6H PRN Infusion Nausea And Vomiting Promethazine HCl 25 mg/ Sodium 51 mls @ 204 mls/hr 04/20/21 11:37 04/20/21 19:54 Chloride IV 05/20/21 11:36 Infused Q6H PRN Infusion Nausea And Vomiting Pantoprazole Sodium 40 mg/ 100 mls @ 20 mls/hr 04/20/21 23:30 04/21/21 09:26 Dextrose IV 05/20/21 23:29 Infused Q5H MAHESH Infusion 8 MG/HR Sodium Chloride 1,000 mls @ 100 mls/hr 04/21/21 06:15 04/21/21 06:26 Nss 1000ml IV 04/21/21 16:14 100 mls/hr .Q10H MAHESH Administration Metoclopramide HCl 10 mg 04/20/21 22:02 04/20/21 23:20 Metoclopramide Hcl Inj 5 Mg/Ml 2 Ml Vial IV 05/20/21 22:01 10 mg Q6H PRN Administration Nausea Ondansetron HCl 4 mg 04/19/21 13:27 04/20/21 17:14 Ondansetron Inj 2 Mg/Ml 2 Ml Vial IV 05/19/21 13:26 4 mg Q6H PRN Administration Nausea Ondansetron HCl 4 mg 04/20/21 11:37 04/20/21 21:11 Ondansetron Inj 2 Mg/Ml 2 Ml Vial IV 05/20/21 11:36 4 mg 4XDQ4H PRN Administration Nausea NPO Date Last Intake of Fluids: 04/19/21 Time Last Intake of Fluids: 21:00 Date Last Intake of Solids: 04/19/21 Time Last Intake of Solids: 21:00 Past Medical History Medical History Acute cholecystitis due to biliary calculus Exercise / Class Metabolic Activity II 4-5 Yardwork/Stairs/Walk up hill Past Surgical History Surgical History (Updated 04/21/21 @ 10:48 by Junior Noyola MD) Hx laparoscopic cholecystectomy (04/21/21) Laparoscopic cholecystectomy. Dr. Herzog 04/20/21 S/P laparoscopic cholecystectomy (04/20/21) Laparoscopic cholecystectomy Dr. Herzog Past Anesthesia History No Hx of Anesthesia Complications and No Family Hx of Anesthesia Complications History of PONV No Hx of PONV and No Hx of Motion Sickness Social History Smoking Status: Never smoker Do You Dip or Chew Tobacco: No Hx Alcohol Use: Yes alcohol intake frequency: holidays/special occasions only Hx Substance Use: No substance use type: does not use Physical Exam Vital Signs Last Vital Signs Temp 36.7 C 04/21/21 07:59 Pulse 95 H 04/21/21 07:59 Resp 14 04/21/21 07:59 BP 95/60 L 04/21/21 07:59 Pulse Ox 94 04/21/21 07:59 Testing Laboratory Results 04/21/21 05:58 04/21/21 05:58 Urine Color Dark Yellow 04/19/21 10:41 Urine Appearance Clear (Clear) 04/19/21 10:41 Urine pH 6.5 (4.5-7.5) 04/19/21 10:41 Ur Specific [place] 1.017 (1.000-1.030) 04/19/21 10:41 Urine Protein Negative (Negative) 04/19/21 10:41 Urine Glucose (UA) Negative (Negative) 04/19/21 10:41 Urine Ketones Negative (Negative) 04/19/21 10:41 Urine Nitrite Negative (Negative) 04/19/21 10:41 Ur Leukocyte Esterase Negative (Negative) 04/19/21 10:41 Urine Test Negative (Negative) 04/19/21 10:41 04/19/21 10:41 Urine Test Negative
--- NOTE | 2021-04-21 11:55 | History & Physical Bridge Note ---
Date of Service April 21, 2021 History & Physical Bridge Note I have examined the patient, reviewed the History & Physical and in the interval since the performance of the History & Physical I have noted the following changes of clinical significance: no changes noted
[2021-04-21] MEDS ORDERED: PROPOFOL IV EMULSION 10 MG/ML 20 ML VIAL IV ONE (12:22)
[2021-04-21] MEDS ORDERED: LIDOCAINE 2% 2 ML VIAL/AMP(20MG/ML) INFIL ONE (12:22)
--- NOTE | 2021-04-21 12:39 | GI REPORT ---
Patient Name: Tati Mckeon Procedure Date: 04/21/2021 11:57 AM Date of : 1995 Admit Type: Inpatient Age: 25 Gender: Female Attending MD: Mick Mayen MD Procedure: Upper GI endoscopy Providers: Mick Mayen MD Referring MD: Cindy Sawant Md Indications: Hematemesis Medicines: See the Anesthesia note for documentation of the administered medications Complications: No immediate complications. Estimated Blood Loss: Estimated blood loss: none. Procedure: Pre-Anesthesia Assessment: - ASA Grade Assessment: II - A patient with mild systemic disease. After obtaining informed consent, the endoscope was passed under direct vision. Throughout the procedure, the patient's blood pressure, pulse, and oxygen saturations were monitored continuously. The Endoscope was introduced through the mouth, and advanced to the second part of duodenum. The upper GI endoscopy was accomplished without difficulty. The patient tolerated the procedure well. Findings: The Z-line was found 35 cm from the incisors. The exam of the esophagus was otherwise normal. There was a moderate amount of coffee ground stained fluid in the stomach. There was a short linear tear in the cardia with a flat pigmented spot and a very small amount of oozing. The remainder of the stomach was normal. The tear was clipped x 2. There was bilious fluid in the duodenum. The duodenal bulb was normal. There was a non bleeding visible vessel at the sphincterotomy site. I discussed management of this stigmata with Dr. Salazar - he recommended observation, rather than endoscopic therapy. Recommendation: Discharge pt to floor. Clear liquids. PPI gtt x 48 hours and observation for 48 hours for evidence of recurrent GIB. If pt has recurrent GIB, may need transfer to [facility] for therapy of post-sphincterotomy bleeding. Mick Mayen M.D. Mick Mayen MD 04/21/2021 12:39:24 PM This report has been signed electronically. Note Initiated On: 04/21/2021 11:57 AM Number of Addenda: 0 I attest to the content of the Intraoperative Record and orders documented therein, exceptions below {[id number]}
--- NOTE | 2021-04-21 13:05 | Anesthesiology Progress Note ---
Date of Service April 21, 2021 Anesthesia Post Procedure Vital Signs Vital Signs: Temp Pulse Resp BP BP Pulse Ox 04/21/21 12:56 79 16 101/76 99 04/21/21 12:44 85 16 102/70 99 04/21/21 12:29 93 H 16 101/62 96 04/21/21 10:51 37.4 C 89 16 98/56 L 95 04/21/21 07:59 36.7 C 95 H 14 95/60 L 94 04/21/21 06:08 81 102/67 04/21/21 04:41 75 90/53 L 94 04/21/21 03:22 37.2 C 86 20 78/46 L 69/37 L 93 04/20/21 23:18 37.1 C 89 14 105/71 94 04/20/21 19:30 36.6 C 64 18 102/69 94 04/20/21 14:31 36.8 C 59 L 16 121/78 92 04/20/21 13:27 36.6 C 64 16 129/89 98 Pain Intensity Right Upper Abdomen: Pain Intensity: 1 Abdomen: Pain Intensity: 5 Transfer of Care Handoff Completed per policy Notes Mental Status: alert / awake / arousable and participated in evaluation Patient Amnestic to Procedure: Yes Nausea / Vomiting: adequately controlled Pain: adequately controlled Airway Patency, RR, SpO2: stable & adequate BP & HR: stable & adequate Hydration State: stable & adequate Anesthetic Complications: no major complications apparent and Pt Satisfied with anesthetic care
--- NOTE | 2021-04-21 14:03 | Hospitalist Progress Note ---
Date of Service April 21, 2021 Assessment & Plan (1) Acute cholecystitis due to biliary calculus: Plan: 25 y/o F with no active medical issues. Presents with 2-3 days of upper quadrant abdominal pain and nausea. An abdominal US was obtained in the ER demonstrating cholelithiasis and cholecystitis. There is biliary duct dilation although a calculus could not be seen. Labs are consistent with an obstructive process and otherwise notable for mild leukopenia. The pt was afebrile on arrival. The patient was seen by both general surgery and GI and is status post ERCP/cholecystectomy She has had complications of post ERCP pancreatitis as well as postoperative hyp eremesis resulting in a tear of the gastric lining with GI bleeding and acute blood loss anemia Continue Unasyn Continue pain control with hydrocodone -Antiemetics Appreciate surgery and GI management Continue LR at 125 mL's per hour (2) Acute blood loss anemia: Plan: With resulting hypotension to the systolics in the 60s which improved with IV fluid bolus Secondary to upper GI bleed after profuse vomiting postoperatively from cholecystectomy Now status post repeat EGD on 04/21 with clipping of gastric tear. There is also visible vessel at site of sphincterotomy which is nonbleeding -Continue Protonix drip x48 more hours -Clear liquids only for now -Sucralfate 1 g p.o. 4 times daily -Follow CBC this afternoon and again in the morning and transfuse if continues to drop or has recurrent bleeding If has bleeding from the sphincterotomy site, GI recommends transfer out to tertiary care facility (3) Hematemesis: Plan: As above (4) Choledocholithiasis: Plan: s/p ERCP and cholecystectomy as above (5) Vomiting: Plan: Likely related to anesthesia Antiemetics Now improved Advance to clear liquids (6) Elevated LFTs: Plan: secondary to choledocholithiasis-now improving status post ERCP and cholecystectomy Follow LFTs in the morning (7) Pancreatitis: Plan: Post ERCP pancreatitis Improving (8) Headache: Plan: Likely secondary to dehydration and hypotension Tylenol IV fluids (9) Hypomagnesemia: Plan: Replace with IV magnesium sulfate Follow magnesium level in the morning (10) Hypotension: Plan: As above, secondary to acute blood loss anemia IV fluids- (11) Hypocalcemia: Plan: Corrected calcium only up to 8.0 Give 1 g IV calcium gluconate (12) DVT prophylaxis: Plan: No anticoagulation due to GI bleeding SCDs Disposition-continued stay Case discussed with her at the bedside Admission and Anticipated Discharge Date Admission Date: April 19, 2021 Subjective Patient just returned from EGD. She had hematemesis overnight after multiple episodes of vomiting and became hypotensive with blood pressures into the 60s systolic. Hemoglobin dropped this morning by 3 g. She was taken for EGD which showed a tear in the gastric lining that was oozing blood and this was clipped. She also was found to have a visible vessel at the site of previous sphincterotomy but this was nonbleeding. district claims manager was utilized on the iPad. Patient reports still some pain at the incision sites and pain with tenderness to palpation. She denies any further nausea. She is having a moderate headache. We reviewed the results of her EGD. I discussed her care with GI and the surgery PA at the bedside. Review of Systems Review of Systems: All systems reviewed & are unremarkable except as noted in HPI & below Physical Exam Constitutional: WD/WN, vitals as above Eyes: + anicteric sclerae ENMT: external ear and nose normal, oropharynx normal Neck: trachea midline, no thyromegaly Respiratory: normal respiratory effort, lungs clear to auscultation Cardiovascular: RRR, no murmur, no edema Chest (Breasts): Chest: normal inspection of chest Gastrointestinal (Abdomen): Inspection/Auscultation: + abdomen abnormal to inspection (Multiple laparoscopic surgical scars with Dermabond in place) Percussion/Palpation: + abdomen tender (At surgical sites without guarding) and abdomen soft Musculoskeletal: Extremities: extremities normal to inspection; no cyanosis and no clubbing Skin: no rashes, warm and dry Neurologic: moves all extremities and awake; no focal motor deficits Psychiatric: Orientation: alert, oriented x 3 and cooperative Affect: + tearful affect Lymphatic: no lymphedema Results & Data Results & Data ([facility]) Vital Signs (Past 12 Hours) Vital Signs Temp Pulse Resp BP BP Pulse Ox 04/21/21 13:35 36.9 C 72 16 101/69 96 04/21/21 12:56 79 16 101/76 99 04/21/21 12:44 85 16 102/70 99 04/21/21 12:29 93 H 16 101/62 96 04/21/21 10:51 37.4 C 89 16 98/56 L 95 04/21/21 07:59 36.7 C 95 H 14 95/60 L 94 04/21/21 06:08 81 102/67 04/21/21 04:41 75 90/53 L 94 04/21/21 03:22 37.2 C 86 20 78/46 L 69/37 L 93 Laboratory Results 04/21/21 04/21/21 04/21/21 Range/Units 14:36 05:58 05:58 WBC 9.16 9.40 (4.8-10.8) K/uL RBC 3.06 L 3.10 L (4.2-5.4) M/uL Hgb 9.5 L 9.7 L D (12.0-16.0) g/dL Hct 28.7 L 28.9 L (37-47) % MCV 93.8 93.2 (80-100) fL MCH 31.0 31.3 (25-34) pg MCHC 33.1 33.6 (32-36) g/dL RDW Std Deviation 42.5 42.4 (36.4-46.3) fL RDW Coeff of Dorie 12.5 12.4 (11.5-14.5) % Plt Count 257 245 (130-400) K/uL MPV 9.7 9.7 (7.4-10.4) fL Immature Gran % (Auto) 0.1 % Neut % (Auto) 78.2 % Lymph % (Auto) 14.9 % [place] % (Auto) 6.8 % Eos % (Auto) 0.0 % Baso % (Auto) 0.0 % Neut # (Auto) 7.35 H (1.4-6.5) K/uL Lymph # (Auto) 1.40 (1.2-3.4) K/uL [place] # (Auto) 0.64 H (0.11-0.59) K/uL Eos # (Auto) 0.00 (0-0.5) K/uL Baso # (Auto) 0.00 (0-0.2) K/uL Immature Gran # (Auto) 0.01 (0.00-0.02) K/uL Sodium 143 (136-145) mmol/L Potassium 3.5 (3.5-5.1) mmol/L Chloride 115 H (98-107) mmol/L Carbon Dioxide 26 (21-32) mmol/L Anion Gap 2.0 L (3-11) BUN 26 H (7-18) mg/dl Creatinine 0.48 L (0.6-1.2) mg/dl Est Cr Clr Drug Dosing 136.3 ml/min Est GFR ( Amer) > 150.0 ml/min Est GFR (Non-Af Amer) 137.3 ml/min BUN/Creatinine Ratio 54.2 H (10-20) Glucose 90 (70-99) mg/dl Calcium 6.8 L D (8.5-10.1) mg/dl Phosphorus 3.2 (2.5-4.9) mg/dl Magnesium 1.5 L (1.8-2.4) mg/dl Total Bilirubin 0.9 D (0.2-1) mg/dl AST 100 H (15-37) U/L ALT 445 H (12-78) U/L Alkaline Phosphatase 99 (45-117) U/L Total Protein 4.9 L D (6.4-8.2) gm/dl Albumin 2.5 L (3.4-5.0) gm/dl Globulin 2.4 L (2.5-4.0) gm/dl Albumin/Globulin Ratio 1.0 (0.9-2) Lipase 3242 H (73-393) U/L 04/20/21 04/20/21 Range/Units 22:16 22:16 WBC (4.8-10.8) K/uL RBC (4.2-5.4) M/uL Hgb 12.9 (12.0-16.0) g/dL Hct 37.5 (37-47) % MCV (80-100) fL MCH (25-34) pg MCHC (32-36) g/dL RDW Std Deviation (36.4-46.3) fL RDW Coeff of Dorie (11.5-14.5) % Plt Count (130-400) K/uL MPV (7.4-10.4) fL Immature Gran % (Auto) % Neut % (Auto) % Lymph % (Auto) % [place] % (Auto) % Eos % (Auto) % Baso % (Auto) % Neut # (Auto) (1.4-6.5) K/uL Lymph # (Auto) (1.2-3.4) K/uL [place] # (Auto) (0.11-0.59) K/uL Eos # (Auto) (0-0.5) K/uL Baso # (Auto) (0-0.2) K/uL Immature Gran # (Auto) (0.00-0.02) K/uL Sodium 143 (136-145) mmol/L Potassium 3.7 (3.5-5.1) mmol/L Chloride 110 H (98-107) mmol/L Carbon Dioxide 27 (21-32) mmol/L Anion Gap 6.0 (3-11) BUN 25 H D (7-18) mg/dl Creatinine 0.62 (0.6-1.2) mg/dl Est Cr Clr Drug Dosing 105.5 ml/min Est GFR ( Amer) 146.3 ml/min Est GFR (Non-Af Amer) 126.2 ml/min BUN/Creatinine Ratio 40.5 H (10-20) Glucose 121 H (70-99) mg/dl Calcium 8.2 L (8.5-10.1) mg/dl Phosphorus (2.5-4.9) mg/dl Magnesium (1.8-2.4) mg/dl Total Bilirubin (0.2-1) mg/dl AST (15-37) U/L ALT (12-78) U/L Alkaline Phosphatase (45-117) U/L Total Protein (6.4-8.2) gm/dl Albumin (3.4-5.0) gm/dl Globulin (2.5-4.0) gm/dl Albumin/Globulin Ratio (0.9-2) Lipase 5606 H (73-393) U/L PG Care Time/CCT Total # of Minutes Spent Total Time Spent with Patient: Total time spent is greater than 50% in coordination of care (as documented) at patient's floor/unit and/or counseling patient: Coding Level of Care Code 57143 Subseq Hosp Care Lvl 3 Diagnoses Acute cholecystitis due to biliary calculus K80.00 Choledocholithiasis K80.50 Vomiting R11.10 Elevated LFTs R79.89 Acute blood loss anemia D62 Hematemesis K92.0 Pancreatitis K85.90 DVT prophylaxis Z29.9 Headache R51.9 Hypomagnesemia E83.42 Hypotension I95.9 Hypocalcemia E83.51
[2021-04-21] MEDS: HYDROCODONE/ACETAMOPHEN 5/325MG TAB PO PRN ×2 (14:10→23:15)
[2021-04-21] MEDS: MAGNESIUM SULFATE / D5W 1 GM/100 ML BAG IV SCH ×2 (14:17→16:27)
[2021-04-21] MEDS: LACTATED RINGER'S 1,000 ML IV SCH ×2 (14:48→22:19)
[2021-04-21 15:00] LABS: Hematocrit (blood only) 28.7 % (37-47); Hemoglobin 9.5 g/dL (12.0-16.0); Mean Corpuscular Hgb Conc 33.1 g/dL (32-36); Mean Corpuscular Volume 93.8 fL (80-100); Mean Platelet Volume 9.7 fL (7.4-10.4); Platelet Count 257 K/uL (130-400); RDW Coefficient of Variation 12.5 % (11.5-14.5); RDW Standard Deviation 42.5 fL (36.4-46.3); Red Blood Count 3.06 M/uL (4.2-5.4); White Blood Count 9.16 K/uL (4.8-10.8)
[2021-04-21] MEDS: SUCRALFATE 1 GM/10 ML UDC PO SCH ×3 (16:26→21:23)
[2021-04-21] MEDS ORDERED: CALCIUM GLUCONATE 10% 1,000 MG in SODIUM CHLORIDE 0.9% 50 ML IV ONE (22:41)
[2021-04-22] MEDS: PANTOprazole 40 MG in DEXTROSE 5% 100 ML IV SCH ×5 (00:15→19:45)
[2021-04-22] MEDS: AMPICILLIN/SULBACTAM SOD 1,500 MG in 0.9 % SODIUM CHLORIDE 100 ML IV SCH ×4 (05:03→20:43)
[2021-04-22] MEDS: LACTATED RINGER'S 1,000 ML IV SCH ×3 (05:30→20:43)
[2021-04-22 08:12] LABS: Basophils # (auto) 0.01 K/uL (0-0.2); Basophils % (auto) 0.2 %; Eosinophils # (auto) 0.06 K/uL (0-0.5); Eosinophils % (auto) 0.9 %; Hematocrit (blood only) 25.3 % (37-47); Hemoglobin 8.5 g/dL (12.0-16.0); Lymphocytes % (auto) 32.1 %; Mean Corpuscular Hemoglobin 31.1 pg (25-34); Mean Corpuscular Hgb Conc 33.6 g/dL (32-36); Mean Corpuscular Volume 92.7 fL (80-100); Mean Platelet Volume 9.5 fL (7.4-10.4); Monocytes # (auto) 0.31 K/uL (0.11-0.59); Monocytes % (auto) 4.7 %; Neutrophils # (auto) 4.06 K/uL (1.4-6.5); Neutrophils % (auto) 62.1 %; Platelet Count 228 K/uL (130-400); RDW Coefficient of Variation 12.3 % (11.5-14.5); Red Blood Count 2.73 M/uL (4.2-5.4); White Blood Count 6.54 K/uL (4.8-10.8)
[2021-04-22] MEDS: SUCRALFATE 1 GM/10 ML UDC PO SCH ×4 (08:32→20:43)
[2021-04-22] MEDS: ACETAMINOPHEN 325 MG TAB PO PRN ×3 (08:32→20:45)
--- NOTE | 2021-04-22 08:46 | Gastroenterology Progress Note ---
Date of Service April 22, 2021 Assessment & Plan (1) Hematemesis: (2) Choledocholithiasis: Plan: This is a 25 y/o female s/p ERCP with choledocholithiasis removed, s/p cholecystectomy, who developed hematemesis and drop in HGB 12->9. EGD yesterday with tear in cardia which was clipped and nonbleeding visible vessel observed at sphincterotomy site. Overnight pt has had no further GIB. Labs reviewed; HGB, BUN stable. VSS. On exam abd is soft. - Continue PPI gtt x 48 hours and monitor for signs of recurrent GIB - If pt has recurrent GIB, may need to transfer to outside facility ([facility]) - Clear liquid diet - Continue supportive care with IVF - Antiemetics PRN - Analgesia PRN - Trend H&H, transfuse PRN - Trend daiy LFTs, lipase - Monitor and document GI output Admission and Anticipated Discharge Date Admission Date: April 19, 2021 Supervising Physician Co-Signing Physician Notes I have personally seen and examined the patient with Laine Villagomez PA-C. Her note reflects my exam and findings. I agree with her impression and plan. Pt still having mild RUQ discomfort and using pain control medications. No BMs. No further vomiting. Cont to folllow H/H. Cont clears. Marcial Hightower M.D. Subjective Patient seen and examined, chart reviewed. Overnight had no further hematemesis, melena, hematochezia. No BMs; minimal flatus. Labs reviewed; HGB, BUN stable. She tolerated some clear liquids today. Having some abd pain that is a soreness, worsens with movement. Significant other in room with pt. Review of Systems Review of Systems: As per HPI Physical Exam Constitutional: WD/WN, vitals as above Respiratory: normal respiratory effort Cardiovascular: RRR, no murmur, no edema Gastrointestinal (Abdomen): Inspection/Auscultation: abdomen normal to inspection; abdomen not distended Percussion/Palpation: + abdomen tender (RUQ; no guarding, rebound) Skin: no rashes, warm and dry Psychiatric: A+Ox3, euthymic affect Results & Data ([facility]) Vital Signs (Past 12 Hours) Vital Signs Temp Pulse Resp BP Pulse Ox 04/22/21 07:43 36.7 C 83 16 92/59 L 95 04/22/21 02:59 36.9 C 66 15 89/55 L 96 04/21/21 22:47 37.0 C 80 15 101/67 97 Laboratory Results 04/22/21 04/22/21 04/21/21 Range/Units 07:35 07:35 14:36 WBC 6.54 9.16 (4.8-10.8) K/uL RBC 2.73 L 3.06 L (4.2-5.4) M/uL Hgb 8.5 L 9.5 L (12.0-16.0) g/dL Hct 25.3 L 28.7 L (37-47) % MCV 92.7 93.8 (80-100) fL MCH 31.1 31.0 (25-34) pg MCHC 33.6 33.1 (32-36) g/dL RDW Std Deviation 42.0 42.5 (36.4-46.3) fL RDW Coeff of Dorie 12.3 12.5 (11.5-14.5) % Plt Count 228 257 (130-400) K/uL MPV 9.5 9.7 (7.4-10.4) fL Immature Gran % (Auto) 0.0 % Neut % (Auto) 62.1 % Lymph % (Auto) 32.1 % [place] % (Auto) 4.7 % Eos % (Auto) 0.9 % Baso % (Auto) 0.2 % Neut # (Auto) 4.06 (1.4-6.5) K/uL Lymph # (Auto) 2.10 (1.2-3.4) K/uL [place] # (Auto) 0.31 (0.11-0.59) K/uL Eos # (Auto) 0.06 (0-0.5) K/uL Baso # (Auto) 0.01 (0-0.2) K/uL Immature Gran # (Auto) 0.00 (0.00-0.02) K/uL Sodium Pending Potassium Pending Chloride Pending Carbon Dioxide Pending Anion Gap Pending BUN Pending Creatinine Pending Est Cr Clr Drug Dosing Pending Est GFR ( Amer) Pending Est GFR (Non-Af Amer) Pending BUN/Creatinine Ratio Pending Glucose Pending Calcium Pending Phosphorus Pending Magnesium Pending Total Bilirubin Pending Direct Bilirubin Pending AST Pending ALT Pending Alkaline Phosphatase Pending Total Protein Pending Albumin Pending Lipase Pending Diagnostic Findings EGD 04/21/21: The Z-line was found 35 cm from the incisors. The exam of the esophagus was otherwise normal. There was a moderate amount of coffee ground stained fluid in the stomach. There was a short linear tear in the cardia with a flat pigmented spot and a very small amount of oozing. The remainder of the stomach was normal. The tear was clipped x 2. There was bilious fluid in the duodenum. The duodenal bulb was normal. There was a non bleeding visible vessel at the sphincterotomy site. I discussed management of this stigmata with Dr. Salazar - he recommended observation, rather than endoscopic therapy. Recommendation: Discharge pt to floor. Clear liquids. PPI gtt x 48 hours and observation for 48 hours for evidence of recurrent GIB. If pt has recurrent GIB, may need transfer to [facility] for therapy of post-sphincterotomy bleeding.
[2021-04-22 08:54] LABS: Alanine Aminotransferase 335 U/L (12-78); Albumin Level 2.7 gm/dl (3.4-5.0); Alkaline Phosphatase 87 U/L (45-117); Aspartate Aminotransferase 57 U/L (15-37); BUN Creatinine Ratio 15.3 (10-20); Bilirubin Direct 0.4 mg/dl (0-0.2); Bilirubin,Total 0.8 mg/dl (0.2-1); Blood Urea Nitrogen 7 mg/dl (7-18); Carbon Dioxide 29 mmol/L (21-32); Chloride 109 mmol/L (98-107); Creatinine Clr Calc Pharmacy 139.2 ml/min; Est GFR (African American) > 150.0 ml/min; Est GFR (Non-African American) 138.3 ml/min; Glucose 84 mg/dl (70-99); Lipase 270 U/L (73-393); Magnesium 1.8 mg/dl (1.8-2.4); Phosphorus 2.6 mg/dl (2.5-4.9); Potassium 3.2 mmol/L (3.5-5.1); Sodium 141 mmol/L (136-145); Total Protein 5.5 gm/dl (6.4-8.2)
--- NOTE | 2021-04-22 10:13 | Surgery Progress Note ---
Date of Service April 22, 2021 Assessment & Plan (1) Acute blood loss anemia: Plan: Patient status post ERCP and laparoscopic cholecystectomy Postoperative post ERCP pancreatitis, also hyperemesis with some gastric bleeding Status post E GD Patient doing better this morning, H&H dropped some but no evidence of active bleeding Diet per GI team Admission and Anticipated Discharge Date Admission Date: April 19, 2021 Results & Data ([facility]) Vital Signs (Past 12 Hours) Vital Signs Temp Pulse Resp BP Pulse Ox 04/22/21 07:43 36.7 C 83 16 92/59 L 95 04/22/21 02:59 36.9 C 66 15 89/55 L 96 04/21/21 22:47 37.0 C 80 15 101/67 97 PG Care Time/CCT Total # of Minutes Spent Total Time Spent with Patient: Total time spent is greater than 50% in coordination of care (as documented) at patient's floor/unit and/or counseling patient: Coding Level of Care Code None Diagnoses Acute blood loss anemia D62
[2021-04-22] MEDS: POTASSIUM CHLORIDE / WTR 10 MEQ/100 ML PLCT IV SCH ×3 (12:12→14:19)
--- NOTE | 2021-04-22 20:00 | Hospitalist Progress Note ---
Date of Service April 22, 2021 Assessment & Plan (1) Acute cholecystitis due to biliary calculus: Plan: 25 y/o F with no active medical issues. Presents with 2-3 days of upper quadrant abdominal pain and nausea. An abdominal US was obtained in the ER demonstrating cholelithiasis and cholecystitis. There is biliary duct dilation although a calculus could not be seen. Labs are consistent with an obstructive process and otherwise notable for mild leukopenia. The pt was afebrile on arrival. The patient was seen by both general surgery and GI and is status post ERCP/cholecystectomy on 04/20 She has had complications of post ERCP pancreatitis as well as postoperative hyperemesis resulting in a tear of the gastric lining with GI bleeding and acute blood loss anemia overnight on 04/20 and 04/21 Now much improved status post clipping of gastric tear Continue Unasyn Continue pain control with hydrocodone -Antiemetics Appreciate surgery and GI management Continue LR at 125 mL's per hour (2) Acute blood loss anemia: Plan: With resulting hypotension to the systolics in the 60s which improved with IV fluid bolus Secondary to upper GI bleed after profuse vomiting postoperatively from cholecystectomy Now status post repeat EGD on 04/21 with clipping of gastric tear. There is also visible vessel at site of sphincterotomy which is nonbleeding Hemoglobin dropped from 15 admission to 12-9 after the GI bleed Hemoglobin slight drop today to 8.5 but no active bleeding and blood pressures remained stable -Continue Protonix drip x 24 more hours -Continue clear liquids only for now -Continue sucralfate 1 g p.o. 4 times daily -Follow CBC in the morning and transfuse if continues to drop or has recurrent bleeding If has bleeding from the sphincterotomy site, GI recommends transfer out to tertiary care facility (3) Hematemesis: Plan: As above, now resolved (4) Choledocholithiasis: Plan: s/p ERCP and cholecystectomy as above LFTs trending downward (5) Vomiting: Plan: Likely related to anesthesia Now resolved Continue clear liquids diet as above (6) Elevated LFTs: Plan: secondary to choledocholithiasis-now continuing to improve status post ERCP and cholecystectomy Follow LFTs in the morning (7) Pancreatitis: Plan: Post ERCP pancreatitis-now resolved (8) Headache: Plan: Likely secondary to dehydration and hypotension on 04/21-now resolved completely with IV fluids and Tylenol (9) Hypomagnesemia: Plan: Replaced (10) Hypotension: Plan: As above, secondary to acute blood loss anemia-resolved Continue IV fluids (11) Hypocalcemia: Plan: Corrected calcium only up to 8.0 Give 1 g IV calcium gluconate on 04/21 and now is improved (12) Hypokalemia: Plan: Due to poor p.o. intake Replace with IV potassium chloride Follow BMP in the morning Follow magnesium in the morning (13) DVT prophylaxis: Plan: No anticoagulation due to GI bleeding SCDs Disposition-continued stay at least 1-2 more days Admission and Anticipated Discharge Date Admission Date: April 19, 2021 Subjective Patient reports less pain in the abdomen today and is in better spirits. She wants to know if she can get up and walk around in the hallways on her own. No further nausea or vomiting she is tolerating clear liquids diet. She has not had any blood in her bowel movement. She is urinating. An science specialist service was used to communicate. Review of Systems Review of Systems: All systems reviewed & are unremarkable except as noted in HPI & below Physical Exam Constitutional: WD/WN, vitals as above Eyes: + anicteric sclerae ENMT: external ear and nose normal, oropharynx normal Neck: trachea midline, no thyromegaly Respiratory: normal respiratory effort, lungs clear to auscultation Cardiovascular: RRR, no murmur, no edema Chest (Breasts): Chest: normal inspection of chest Gastrointestinal (Abdomen): Inspection/Auscultation: + abdomen abnormal to inspection (Multiple laparoscopic surgical scars with Dermabond in place) Percussion/Palpation: + abdomen tender (At surgical sites without guarding but improved from yesterday) and abdomen soft Musculoskeletal: Extremities: extremities normal to inspection; no cyanosis and no clubbing Skin: no rashes, warm and dry Neurologic: moves all extremities and awake; no focal motor deficits Psychiatric: Orientation: alert, oriented x 3 and cooperative Affect: euthymic affect Lymphatic: no lymphedema Results & Data Results & Data ([facility]) Vital Signs (Past 12 Hours) Vital Signs Temp Pulse Resp BP Pulse Ox 04/22/21 15:11 37 C 84 18 99/68 L 96 Laboratory Results 04/22/21 04/22/21 Range/Units 07:35 07:35 WBC 6.54 (4.8-10.8) K/uL RBC 2.73 L (4.2-5.4) M/uL Hgb 8.5 L (12.0-16.0) g/dL Hct 25.3 L (37-47) % MCV 92.7 (80-100) fL MCH 31.1 (25-34) pg MCHC 33.6 (32-36) g/dL RDW Std Deviation 42.0 (36.4-46.3) fL RDW Coeff of Dorie 12.3 (11.5-14.5) % Plt Count 228 (130-400) K/uL MPV 9.5 (7.4-10.4) fL Immature Gran % (Auto) 0.0 % Neut % (Auto) 62.1 % Lymph % (Auto) 32.1 % [place] % (Auto) 4.7 % Eos % (Auto) 0.9 % Baso % (Auto) 0.2 % Neut # (Auto) 4.06 (1.4-6.5) K/uL Lymph # (Auto) 2.10 (1.2-3.4) K/uL [place] # (Auto) 0.31 (0.11-0.59) K/uL Eos # (Auto) 0.06 (0-0.5) K/uL Baso # (Auto) 0.01 (0-0.2) K/uL Immature Gran # (Auto) 0.00 (0.00-0.02) K/uL Sodium 141 (136-145) mmol/L Potassium 3.2 L (3.5-5.1) mmol/L Chloride 109 H (98-107) mmol/L Carbon Dioxide 29 (21-32) mmol/L Anion Gap 4.0 (3-11) BUN 7 D (7-18) mg/dl Creatinine 0.47 L (0.6-1.2) mg/dl Est Cr Clr Drug Dosing 139.2 ml/min Est GFR ( Amer) > 150.0 ml/min Est GFR (Non-Af Amer) 138.3 ml/min BUN/Creatinine Ratio 15.3 (10-20) Glucose 84 (70-99) mg/dl Calcium 8.0 L D (8.5-10.1) mg/dl Phosphorus 2.6 (2.5-4.9) mg/dl Magnesium 1.8 (1.8-2.4) mg/dl Total Bilirubin 0.8 (0.2-1) mg/dl Direct Bilirubin 0.4 H (0-0.2) mg/dl AST 57 H (15-37) U/L ALT 335 H (12-78) U/L Alkaline Phosphatase 87 (45-117) U/L Total Protein 5.5 L (6.4-8.2) gm/dl Albumin 2.7 L (3.4-5.0) gm/dl Lipase 270 (73-393) U/L PG Care Time/CCT Total # of Minutes Spent Total Time Spent with Patient: Total time spent is greater than 50% in coordination of care (as documented) at patient's floor/unit and/or counseling patient: Coding Level of Care Code 24762 Subseq Hosp Care Lvl 3 Diagnoses Acute cholecystitis due to biliary calculus K80.00 Acute blood loss anemia D62 Hematemesis K92.0 Choledocholithiasis K80.50 Vomiting R11.10 Elevated LFTs R79.89 Pancreatitis K85.90 Headache R51.9 Hypomagnesemia E83.42 Hypotension I95.9 Hypocalcemia E83.51 DVT prophylaxis Z29.9 Hypokalemia E87.6
[2021-04-23] MEDS: PANTOprazole 40 MG in DEXTROSE 5% 100 ML IV SCH ×5 (00:22→22:03)
[2021-04-23] MEDS: AMPICILLIN/SULBACTAM SOD 1,500 MG in 0.9 % SODIUM CHLORIDE 100 ML IV SCH ×4 (04:28→22:02)
[2021-04-23] MEDS: LACTATED RINGER'S 1,000 ML IV SCH (05:50)
[2021-04-23 06:28] LABS: Basophils # (auto) 0.01 K/uL (0-0.2); Basophils % (auto) 0.2 %; Eosinophils % (auto) 2.4 %; Hematocrit (blood only) 25.6 % (37-47); Hemoglobin 8.7 g/dL (12.0-16.0); Lymphocytes # (auto) 1.81 K/uL (1.2-3.4); Lymphocytes % (auto) 42.6 %; Mean Corpuscular Hemoglobin 31.2 pg (25-34); Mean Corpuscular Volume 91.8 fL (80-100); Mean Platelet Volume 9.5 fL (7.4-10.4); Monocytes # (auto) 0.26 K/uL (0.11-0.59); Monocytes % (auto) 6.1 %; Neutrophils # (auto) 2.07 K/uL (1.4-6.5); Neutrophils % (auto) 48.7 %; Platelet Count 256 K/uL (130-400); RDW Coefficient of Variation 11.9 % (11.5-14.5); RDW Standard Deviation 40.2 fL (36.4-46.3); Red Blood Count 2.79 M/uL (4.2-5.4); White Blood Count 4.25 K/uL (4.8-10.8)
--- NOTE | 2021-04-23 06:48 | Surgery Progress Note ---
Date of Service April 23, 2021 Assessment & Plan (1) S/P laparoscopic cholecystectomy: Plan: She seems to be doing much better Can DC home from a surgical standpoint When okay with gastroenterology and medical team Can follow-up in the office in 2 to 3 weeks-she has no sutures to remove Admission and Anticipated Discharge Date Admission Date: April 19, 2021 Results & Data ([facility]) Vital Signs (Past 12 Hours) Vital Signs Temp Pulse Resp BP Pulse Ox 04/22/21 22:35 36.9 C 67 15 95/61 L 99 PG Care Time/CCT Total # of Minutes Spent Total Time Spent with Patient: Total time spent is greater than 50% in coordination of care (as documented) at patient's floor/unit and/or counseling patient: Coding Level of Care Code None Diagnoses S/P laparoscopic cholecystectomy Z90.49
[2021-04-23 07:12] LABS: Alanine Aminotransferase 267 U/L (12-78); Albumin Level 2.9 gm/dl (3.4-5.0); Aspartate Aminotransferase 36 U/L (15-37); Blood Urea Nitrogen 8 mg/dl (7-18); Calcium 8.1 mg/dl (8.5-10.1); Carbon Dioxide 30 mmol/L (21-32); Chloride 107 mmol/L (98-107); Creatinine Clr Calc Pharmacy 130.8 ml/min; Est GFR (African American) > 150.0 ml/min; Est GFR (Non-African American) 135.5 ml/min; Glucose 90 mg/dl (70-99); Magnesium 1.9 mg/dl (1.8-2.4); Potassium 3.2 mmol/L (3.5-5.1); Sodium 139 mmol/L (136-145)
[2021-04-23 07:31] LABS: Alkaline Phosphatase 79 U/L (45-117); Bilirubin,Total 0.9 mg/dl (0.2-1); Globulin 2.8 gm/dl (2.5-4.0); Phosphorus 4.1 mg/dl (2.5-4.9); Total Protein 5.7 gm/dl (6.4-8.2)
[2021-04-23] MEDS: SUCRALFATE 1 GM/10 ML UDC PO SCH ×4 (08:42→22:02)
[2021-04-23] MEDS ORDERED: POTASSIUM CHLORIDE CRTAB 20 MEQ TABCR PO STA ×2 (09:29→11:53)
--- NOTE | 2021-04-23 09:32 | Gastroenterology Progress Note ---
Date of Service April 23, 2021 Assessment & Plan (1) Hematemesis: (2) Choledocholithiasis: Plan: This is a 25 y/o female s/p ERCP with choledocholithiasis removed, s/p cholecystectomy, who developed hematemesis and drop in HGB 12->9. EGD 2 days ago with tear in cardia which was clipped and nonbleeding visible vessel observed at sphincterotomy site. Pt has had no further hematemesis. Labs reviewed; HGB, BUN stable. VSS. On exam abd is soft. She seems much better today - Continue PPI gtt x 48 hours and monitor for signs of recurrent GIB - If pt has recurrent GIB, may need to transfer to outside facility ([facility]) - Can try full liquid diet - Continue supportive care with IVF - Antiemetics PRN - Analgesia PRN - Trend H&H, transfuse PRN - Trend daiy LFTs, lipase - Monitor and document GI output Admission and Anticipated Discharge Date Admission Date: April 19, 2021 Supervising Physician Co-Signing Physician Notes I have personally seen and examined the patient with Elana Villagomez PA-C. Her note reflects my exam and findings. I agree with her impression and plan. Had Bm. Pain significantly improved. Hungry. Marcial Hightower M.D. Subjective Patient seen and examined, chart reviewed. Visit performed with virtual legal examiner - Misael # [id number]. Pt feeling much better today; tolerating clear liquids. Has minimal pain over her incisions. had black loose stool yesterday; none today. Denies hematochezia, hematemesis, n/v, fever, chills, CP, SOB. Review of Systems Review of Systems: As per HPI Physical Exam Constitutional: WD/WN, vitals as above Respiratory: normal respiratory effort, lungs clear to auscultation normal respiratory effort Cardiovascular: RRR, no murmur, no edema Gastrointestinal (Abdomen): normal bowel sounds, soft, nontender, no hepato splenomegaly Inspection/Auscultation: abdomen normal to inspection; abdomen not distended Percussion/Palpation: abdomen soft mildly tender over the RUQ, no rebound, guarding, surgical wounds covered with clean bandage Skin: no rashes, warm and dry Psychiatric: A+Ox3, euthymic affect Results & Data ([facility]) Vital Signs (Past 12 Hours) Vital Signs Temp Pulse Resp BP Pulse Ox 04/23/21 07:16 36.9 C 66 18 87/56 L 94 04/22/21 22:35 36.9 C 67 15 95/61 L 99 Laboratory Results 04/23/21 04/23/21 Range/Units 05:53 05:53 WBC 4.25 L (4.8-10.8) K/uL RBC 2.79 L (4.2-5.4) M/uL Hgb 8.7 L (12.0-16.0) g/dL Hct 25.6 L (37-47) % MCV 91.8 (80-100) fL MCH 31.2 (25-34) pg MCHC 34.0 (32-36) g/dL RDW Std Deviation 40.2 (36.4-46.3) fL RDW Coeff of Dorie 11.9 (11.5-14.5) % Plt Count 256 (130-400) K/uL MPV 9.5 (7.4-10.4) fL Immature Gran % (Auto) 0.0 % Neut % (Auto) 48.7 % Lymph % (Auto) 42.6 % Vance % (Auto) 6.1 % Eos % (Auto) 2.4 % Baso % (Auto) 0.2 % Neut # (Auto) 2.07 (1.4-6.5) K/uL Lymph # (Auto) 1.81 (1.2-3.4) K/uL Vance # (Auto) 0.26 (0.11-0.59) K/uL Eos # (Auto) 0.10 (0-0.5) K/uL Baso # (Auto) 0.01 (0-0.2) K/uL Immature Gran # (Auto) 0.00 (0.00-0.02) K/uL Sodium 139 (136-145) mmol/L Potassium 3.2 L (3.5-5.1) mmol/L Chloride 107 (98-107) mmol/L Carbon Dioxide 30 (21-32) mmol/L Anion Gap 2.0 L (3-11) BUN 8 (7-18) mg/dl Creatinine 0.50 L (0.6-1.2) mg/dl Est Cr Clr Drug Dosing 130.8 ml/min Est GFR ( Amer) > 150.0 ml/min Est GFR (Non-Af Amer) 135.5 ml/min BUN/Creatinine Ratio 15.0 (10-20) Glucose 90 (70-99) mg/dl Calcium 8.1 L (8.5-10.1) mg/dl Phosphorus 4.1 D (2.5-4.9) mg/dl Magnesium 1.9 (1.8-2.4) mg/dl Total Bilirubin 0.9 (0.2-1) mg/dl AST 36 (15-37) U/L ALT 267 H (12-78) U/L Alkaline Phosphatase 79 (45-117) U/L Total Protein 5.7 L (6.4-8.2) gm/dl Albumin 2.9 L (3.4-5.0) gm/dl Globulin 2.8 (2.5-4.0) gm/dl Albumin/Globulin Ratio 1.0 (0.9-2)
[2021-04-23] MEDS ORDERED: LACTATED RINGER'S 500 ML IV ONE (09:34)
[2021-04-23] MEDS: POTASSIUM CHLORIDE / WTR 10 MEQ/100 ML PLCT IV SCH ×2 (10:02→12:12)
--- NOTE | 2021-04-23 12:16 | Hospitalist Progress Note ---
Date of Service April 23, 2021 Assessment & Plan (1) Acute cholecystitis due to biliary calculus: Plan: 25 y/o F with no active medical issues. Presents with 2-3 days of upper quadrant abdominal pain and nausea. An abdominal US was obtained in the ER demonstrating cholelithiasis and cholecystitis. There is biliary duct dilation although a calculus could not be seen. Labs are consistent with an obstructive process and otherwise notable for mild leukopenia. The pt was afebrile on arrival. The patient was seen by both general surgery and GI and is status post ERCP/cholecystectomy on 04/20 She has had complications of post ERCP pancreatitis as well as postoperative hyperemesis resulting in a tear of the gastric lining with GI bleeding and acute blood loss anemia overnight on 04/20 and 04/21 Now much improved status post clipping of gastric tear Continue Unasyn through tomorrow and then can discontinue upon discharge Continue pain control with hydrocodone and Tylenol as needed -Antiemetics Appreciate surgery and GI management Continue LR but reduce rate to 100 mL's per hour, gave 500 mL bolus of LR this morning for blood pressure of 89 systolic -Advance diet to full liquids today -Cleared from surgical standpoint for discharge and should follow up with Dr. Herzog in 2 to 3 weeks in the office. She does not have sutures to remove (2) Acute blood loss anemia: Plan: With resulting hypotension to the systolics in the 60s after GI bleed which improved with IV fluid bolus Secondary to upper GI bleed after profuse vomiting postoperatively from cholecystectomy Now status post repeat EGD on 04/21 with clipping of gastric tear. There is also visible vessel at site of sphincterotomy which is nonbleeding Hemoglobin dropped from 15 admission to 12 and then down to 8.5 after the GI bleed but has now remained stable for 48 hours -Continue Protonix drip through tomorrow morning and then discontinue and convert to oral Protonix twice daily and would continue this for 1 month -Advance diet to full liquids as per GI today -Continue sucralfate 1 g p.o. 4 times daily -Follow CBC in the morning and transfuse if continues to drop or has recurrent bleeding If has bleeding from the sphincterotomy site, GI recommends transfer out to tertiary care facility (3) Hematemesis: Plan: As above, now resolved Had one episode of melena on 04/22 which is likely old blood (4) Choledocholithiasis: Plan: s/p ERCP and cholecystectomy as above LFTs continue to be trending downward (5) Vomiting: Plan: Likely related to anesthesia Now resolved Slowly advance diet as above (6) Elevated LFTs: Plan: secondary to choledocholithiasis-now continuing to improve status post ERCP and cholecystectomy Follow LFTs in the morning (7) Pancreatitis: Plan: Post ERCP pancreatitis-now resolved (8) Headache: Plan: Likely secondary to dehydration and hypotension on 04/21-now resolved completely with IV fluids and Tylenol (9) Hypomagnesemia: Plan: Replaced and resolved (10) Hypotension: Plan: As above, secondary to acute blood loss anemia-borderline today and was improved with bolus of 500 mL LR Continue IV fluids (11) Hypocalcemia: Plan: Corrected calcium only up to 8.0 Give 1 g IV calcium gluconate on 04/21 and now is improved (12) Hypokalemia: Plan: Due to poor p.o. intake-persists at 3.2 today Replace with IV potassium chloride which infiltrated and was discontinued. Give 60 mEq of p.o. potassium chloride today Follow BMP in the morning Follow magnesium in the morning (13) DVT prophylaxis: Plan: No anticoagulation due to GI bleeding SCDs Disposition-continued stay but hopeful for discharge to home tomorrow if continues to improve and no further bleeding. I discussed her care with her on the phone Admission and Anticipated Discharge Date Admission Date: April 19, 2021 Subjective Patient feeling better today. Had some burning in the arms with IV potassium and it was infiltrating and IV was removed. Had one episode of melena yesterday but none since then. Hemoglobin remained stable. Has some mild abdominal pain but improved overall. No nausea. She is having right mid back pain from laying in the bed for too long and is agreeable to heating pad. Translation service was used to talk to her and examine her. I also discussed her care with her on the phone. Review of Systems Review of Systems: All systems reviewed & are unremarkable except as noted in HPI & below Physical Exam Constitutional: WD/WN, vitals as above Eyes: + anicteric sclerae ENMT: external ear and nose normal, oropharynx normal Neck: trachea midline, no thyromegaly Respiratory: normal respiratory effort, lungs clear to auscultation Cardiovascular: RRR, no murmur, no edema Chest (Breasts): Chest: normal inspection of chest Gastrointestinal (Abdomen): Inspection/Auscultation: + abdomen abnormal to inspection (Multiple laparoscopic surgical scars with Dermabond in place) Percussion/Palpation: + abdomen tender (At surgical sites without guarding but improved from yesterday) and abdomen soft Musculoskeletal: Extremities: extremities normal to inspection; no cyanosis and no clubbing Skin: no rashes, warm and dry Neurologic: moves all extremities and awake; no focal motor deficits Psychiatric: Orientation: alert, oriented x 3 and cooperative Affect: euthymic affect Lymphatic: no lymphedema Results & Data Results & Data ([facility]) Vital Signs (Past 12 Hours) Vital Signs Temp Pulse Resp BP Pulse Ox 04/23/21 11:46 102/68 04/23/21 07:16 36.9 C 66 18 87/56 L 94 Laboratory Results 04/23/21 04/23/21 Range/Units 05:53 05:53 WBC 4.25 L (4.8-10.8) K/uL RBC 2.79 L (4.2-5.4) M/uL Hgb 8.7 L (12.0-16.0) g/dL Hct 25.6 L (37-47) % MCV 91.8 (80-100) fL MCH 31.2 (25-34) pg MCHC 34.0 (32-36) g/dL RDW Std Deviation 40.2 (36.4-46.3) fL RDW Coeff of Dorie 11.9 (11.5-14.5) % Plt Count 256 (130-400) K/uL MPV 9.5 (7.4-10.4) fL Immature Gran % (Auto) 0.0 % Neut % (Auto) 48.7 % Lymph % (Auto) 42.6 % Norman % (Auto) 6.1 % Eos % (Auto) 2.4 % Baso % (Auto) 0.2 % Neut # (Auto) 2.07 (1.4-6.5) K/uL Lymph # (Auto) 1.81 (1.2-3.4) K/uL Norman # (Auto) 0.26 (0.11-0.59) K/uL Eos # (Auto) 0.10 (0-0.5) K/uL Baso # (Auto) 0.01 (0-0.2) K/uL Immature Gran # (Auto) 0.00 (0.00-0.02) K/uL Sodium 139 (136-145) mmol/L Potassium 3.2 L (3.5-5.1) mmol/L Chloride 107 (98-107) mmol/L Carbon Dioxide 30 (21-32) mmol/L Anion Gap 2.0 L (3-11) BUN 8 (7-18) mg/dl Creatinine 0.50 L (0.6-1.2) mg/dl Est Cr Clr Drug Dosing 130.8 ml/min Est GFR ( Amer) > 150.0 ml/min Est GFR (Non-Af Amer) 135.5 ml/min BUN/Creatinine Ratio 15.0 (10-20) Glucose 90 (70-99) mg/dl Calcium 8.1 L (8.5-10.1) mg/dl Phosphorus 4.1 D (2.5-4.9) mg/dl Magnesium 1.9 (1.8-2.4) mg/dl Total Bilirubin 0.9 (0.2-1) mg/dl AST 36 (15-37) U/L ALT 267 H (12-78) U/L Alkaline Phosphatase 79 (45-117) U/L Total Protein 5.7 L (6.4-8.2) gm/dl Albumin 2.9 L (3.4-5.0) gm/dl Globulin 2.8 (2.5-4.0) gm/dl Albumin/Globulin Ratio 1.0 (0.9-2) PG Care Time/CCT Total # of Minutes Spent Total Time Spent with Patient: Total time spent is greater than 50% in coordination of care (as documented) at patient's floor/unit and/or counseling patient: Coding Level of Care Code 24330 Subseq Hosp Care Lvl 3 Diagnoses Acute cholecystitis due to biliary calculus K80.00 Acute blood loss anemia D62 Hematemesis K92.0 Choledocholithiasis K80.50 Vomiting R11.10 Elevated LFTs R79.89 Pancreatitis K85.90 Headache R51.9 Hypomagnesemia E83.42 Hypotension I95.9 Hypocalcemia E83.51 Hypokalemia E87.6 DVT prophylaxis Z29.9
[2021-04-24] MEDS: PANTOprazole 40 MG in DEXTROSE 5% 100 ML IV SCH ×2 (03:16→08:19)
[2021-04-24] MEDS: AMPICILLIN/SULBACTAM SOD 1,500 MG in 0.9 % SODIUM CHLORIDE 100 ML IV SCH ×2 (03:16→10:53)
[2021-04-24 07:39] LABS: Basophils # (auto) 0.01 K/uL (0-0.2); Basophils % (auto) 0.2 %; Eosinophils # (auto) 0.19 K/uL (0-0.5); Eosinophils % (auto) 3.8 %; Hematocrit (blood only) 28.7 % (37-47); Hemoglobin 9.7 g/dL (12.0-16.0); Immature Granulocytes # (auto) 0.01 K/uL (0.00-0.02); Immature Granulocytes % (auto) 0.2 %; Lymphocytes % (auto) 40.1 %; Mean Corpuscular Hemoglobin 30.9 pg (25-34); Mean Corpuscular Hgb Conc 33.8 g/dL (32-36); Mean Corpuscular Volume 91.4 fL (80-100); Mean Platelet Volume 9.7 fL (7.4-10.4); Monocytes # (auto) 0.28 K/uL (0.11-0.59); Monocytes % (auto) 5.6 %; Neutrophils % (auto) 50.1 %; Platelet Count 313 K/uL (130-400); RDW Standard Deviation 39.8 fL (36.4-46.3); Red Blood Count 3.14 M/uL (4.2-5.4); White Blood Count 4.99 K/uL (4.8-10.8)
[2021-04-24 08:00] LABS: Albumin Level 3.1 gm/dl (3.4-5.0); Calcium 8.1 mg/dl (8.5-10.1); Creatinine Clr Calc Pharmacy 110.9 ml/min; Est GFR (African American) 148.7 ml/min; Est GFR (Non-African American) 128.3 ml/min; Magnesium 1.9 mg/dl (1.8-2.4); Potassium 3.4 mmol/L (3.5-5.1)
[2021-04-24 08:03] LABS: Albumin Globulin Ratio 0.9 (0.9-2); Bilirubin,Total 0.8 mg/dl (0.2-1); Globulin 3.4 gm/dl (2.5-4.0); Total Protein 6.5 gm/dl (6.4-8.2)
[2021-04-24] MEDS ORDERED: POTASSIUM CHLORIDE CRTAB 20 MEQ TABCR PO STA (09:18)
[2021-04-24] MEDS ORDERED: PANTOprazole 40 MG TAB PO SCH (09:30)
[2021-04-24] MEDS: SUCRALFATE 1 GM/10 ML UDC PO SCH ×2 (10:47→13:32)
--- NOTE | 2021-04-24 11:41 | Discharge Summary ---
Date of Service April 24, 2021 Admission HPI Per Admitting Provider 25 y/o F with no active medical issues. Presents with 2-3 days of upper quadrant abdominal pain and nausea. An abdominal US was obtained in the ER demonstrating cholelithiasis and cholecystitis. There is biliary duct dilation although a calculus could not be seen. Labs are consistent with an obstructive process and otherwise notable for mild leukopenia. The pt was afebrile on arrival. PMH/surgical: She denies any active medical issues and has not previously had surgery. Social: Does not smoke, rare ETOH. She hails from [place] and speaks Khmer only Family: Both parents are alive and well. Principal Diagnosis Acute calculus cholecystitis and choledocholithiasis, Acute post-ERCP pancreatitis, Gastric tear with GI bleed, Acute blood loss anemia Discharge Exam Constitutional WD/WN, vitals as above Eyes + anicteric sclerae ENMT external ear and nose normal, oropharynx normal Neck trachea midline, no thyromegaly Respiratory normal respiratory effort, lungs clear to auscultation Cardiovascular RRR, no murmur, no edema Chest (Breasts) Chest: normal inspection of chest Gastrointestinal (Abdomen) Inspection/Auscultation: + abdomen abnormal to inspection (Multiple laparoscopic surgical scars with Dermabond in place) Percussion/Palpation: abdomen soft; abdomen nontender Musculoskeletal Extremities: extremities normal to inspection; no cyanosis and no clubbing Skin no rashes, warm and dry Neurologic moves all extremities and awake; no focal motor deficits Psychiatric Orientation: alert, oriented x 3 and cooperative Affect: euthymic affect Lymphatic no lymphedema Discharge Data Allergies Allergy/AdvReac Type Severity Reaction Status Date / Time No Known Allergies Allergy Unverified 04/19/21 11:56 Consultations 04/19/21 11:59 Consult General Surgery Routine ED Decision to Admit Stat 04/19/21 14:24 Consult Gastroenterology Routine Procedures Performed Operation Date: 04/20/21 10:00 Actual Procedures p Endoscopic Retrograde Cholangiopancreatography(Not Applicable) - DO kyaw [place] Laparoscopic Cholecystectomy(Not Applicable) - Kel Herzog MD, FACS Operation Date: 04/21/21 16:45 Actual Procedures p Esophagogastroduodenoscopy - Mick Mayen MD Ordered Studies 04/19/21 10:25 US gallbladder Stat 04/19/21 15:56 MR MRCP Stat 04/20/21 FL ERCP biliary ductal Routine Gallbladder Ultrasound 04/19/21 10:25 US gallbladder CLINICAL HISTORY: RUQ/epigastric pain COMPARISON STUDY: No previous studies for comparison. FINDINGS: No hepatic lesions are present. There is mild intrahepatic biliary ductal dilatation. The common bile duct is dilated, measuring 1.1 cm in caliber. No common bile duct calculi are identified although these may be occult by s onography. There are multiple gallstones within the gallbladder including a nonmobile gallstones within the gallbladder neck as well as stones within the phrygian cap. Moderate gallbladder wall thickening is noted. Sonographic Gamez sign was reported. The pancreatic body is normal. Head and tail are obscured. There is no right hydronephrosis. IMPRESSION: 1. Cholelithiasis with gallbladder wall thickening and sonographic Gamez sign. These findings raise the possibility of acute cholecystitis. 2. Biliary ductal dilatation. No common bile duct calculi identified although these may be occult by sonography and correlation with liver function tests is recommended. 3. Partially obscured pancreas. ACT 112: Negative or not required by law. Electronically signed by: Dwayne Carranza M.D. 04/19/2021 11:28 AM Cholangiopancreatography MRI 04/19/21 15:56 MRCP CLINICAL HISTORY: Right upper quadrant pain. Epigastric pain. TECHNIQUE: Utilizing a 1.5 Katerin magnet and dedicated coil, multiplanar, multiecho imaging of the upper abdomen was performed utilizing heavily T2 weighted pulsing sequences without IV contrast. COMPARISON STUDY: Right upper quadrant ultrasound performed earlier today. FINDINGS: There are multiple gallstones within the gallbladder, including a 2.1 cm stone within a phrygian cap. The gallbladder is distended. There is gallbladder wall thickening with pericholecystic fluid. Note is made of moderate biliary ductal dilatation. The common bile duct measures 1.1 cm in caliber. Multiple distal common bile duct calculi measure up to approximately 6 mm. There is no pancreatic ductal dilatation. There is no peripancreatic infiltration or fluid. No hepatic lesions are identified on unenhanced exam. Unenhanced images of the spleen, adrenal glands and kidneys are normal. There is no abdominal lymphadenopathy. IMPRESSION: 1. Multiple distal common bile duct calculi which measure up to approximately 6 mm. Associated moderate biliary ductal dilatation. 2. Cholelithiasis with gallbladder distention and gallbladder wall thickening with pericholecystic fluid. The findings suggest acute cholecystitis. ACT 112: Negative or not required by law. Electronically signed by: Dwayne Carranza M.D. 04/19/2021 5:59 PM Endo Retro Cholangiopancreatogram 04/20/21 00:00 FL ERCP biliary ductal CLINICAL HISTORY: ERCP IN OR/[facility] COMPARISON STUDY: Right upper quadrant ultrasound and MRCP April 19, 2021. FLUOROSCOPY TIME: 1 minute and 29 seconds. FLUOROSCOPIC IMAGES: 16 FINDINGS: Fluoroscopy was provided during ERCP. These images demonstrate cannulation of the common bile duct. Filling defects within the distal common bile duct suggest calculi. Balloon sweep through the common bile duct was performed. Intrahepatic bile ducts are minimally opacified. IMPRESSION: Fluoroscopy provided during ERCP. ACT 112: Negative or not required by law. Electronically signed by: Dwayne Carranza M.D. 04/20/2021 1:10 PM KUB X-Ray 04/20/21 19:21 XR KUB/Abdomen 1 view CLINICAL HISTORY: N/v abdominal pain COMPARISON STUDY: No previous studies for comparison. FINDINGS: Nondilated gas and stool-filled loops of bowel are seen throughout the abdomen There is no evidence of free intra-abdominal air, however please note that supine abdominal radiography has limited ability for evaluation for the free intra-abdominal air. No abnormal calcifications are seen. Cholecystectomy clips are seen within the right upper quadrant. IMPRESSION: 1. Nonobstructive bowel gas pattern. ACT 112: Negative or not required by law. The above report was generated using voice recognition software. It may contain grammatical, syntax or spelling errors. Electronically signed by: Jennifer Headley DO 04/20/2021 9:21 PM Hospital Course (1) Acute cholecystitis due to biliary calculus: 25 y/o F with no active medical issues. Presents with 2-3 days of upper quadrant abdominal pain and nausea. An abdominal US was obtained in the ER dem onstrating cholelithiasis and cholecystitis. There is biliary duct dilation although a calculus could not be seen. Labs are consistent with an obstructive process and otherwise notable for mild leukopenia. The pt was afebrile on arrival. The patient was seen by both general surgery and GI and is status post ERCP/cholecystectomy on 04/20 She has had complications of post ERCP pancreatitis as well as postoperative hyperemesis resulting in a tear of the gastric lining with GI bleeding and acute blood loss anemia overnight on 04/20 and 04/21 Now much improved status post clipping of gastric tear Received Unasyn throughout her stay but can be discontinued upon discharge Continue pain control with hydrocodone and Tylenol as needed Appreciate surgery and GI management Diet advanced to soft on day of discharge and tolerating, moving bowels, no melena, BP improved (previously hypotensive) -Cleared from surgical standpoint for discharge and should follow up with Dr. Herzog in 2 to 3 weeks in the office. She does not have sutures to remove (2) Acute blood loss anemia: With resulting hypotension to the systolics in the 60s after GI bleed which improved with IV fluid bolus Secondary to upper GI bleed after profuse vomiting postoperatively from cholecystectomy Now status post repeat EGD on 04/21 with clipping of gastric tear. There is also visible vessel at site of sphincterotomy which is nonbleeding Hemoglobin dropped from 15 admission to 12 and then down to 8.5 after the GI bleed -did not require transfusion and now hgb improved to 9.7 on day of discharge -received Protonix drip x 3 days and then converted to oral Protonix twice daily and would continue this for 1 month -continue soft diet x 2 weeks then advance -received sucralfate 1 g p.o. 4 times daily here but no need to continue on discharge -Follow CBC as an outpt in 1 week (3) Hematemesis: As above, now resolved Had one episode of melena on 04/22 which is likely old blood (4) Choledocholithiasis: s/p ERCP and cholecystectomy as above LFTs continue to be trending downward follow LFTs in 1 week as an outpt (5) Vomiting: Likely related to anesthesia Now resolved tolerating diet at time of discharge (6) Elevated LFTs: secondary to choledocholithiasis-now continuing to improve status post ERCP and cholecystectomy Follow LFTs in one week (7) Pancreatitis: Post ERCP pancreatitis-now resolved (8) Headache: Likely secondary to dehydration and hypotension on 04/21-now resolved completely with IV fluids and Tylenol (9) Hypomagnesemia: Replaced and resolved (10) Hypotension: As above, secondary to acute blood loss anemia-resolved with IVF boluses (11) Hypocalcemia: Corrected calcium only up to 8.0 when acutely ill Gave 1 g IV calcium gluconate on 04/21 and now is improved (12) Hypokalemia: Due to poor p.o. intake-improved with advancement of diet and po replacement (13) DVT prophylaxis: No anticoagulation due to GI bleeding SCDs Disposition-stable for dc to home Total Time Total Time Spent Total Time Spent (In Minutes): 35 min Discharge Plan Discharge Items Patient Disposition: Home - Self-Care Reason For Visit: CHOLECYSTITIS Discharge Diagnosis: Choledocholithiasis, acute /chronic cholecystitis, postoperative gastric hemorrhage, post ERCP pancreatitis with hyperemesis Activity: Per Instructions section Activity Comment: light activity for 4 weeks Lifting: No more than 10 pounds Bathing Comment: may shower; no soaking in tubs/pools Sexual Activity: When tolerated Exercise/Sports: Wait until after follow-up appointment Exercise Comment: wait 4 weeks Driving/Machine Use: no driving while taking narcotics for pain Non-emergency contact: Primary Care Provider, Surgeon and Home Restoration Service Supervisor Call non-emergency contact if: you have any medication questions, your symptoms worsen, your pain is not controlled, your pain is worsening, you have a fever, your temperature is above 101.5, your wound has increased redness, your wound has increased drainage and your wound pain has increased Follow-up/Referrals: [facility] [Outside] (Please call to schedule an appointment with a primary care doctor. CV does not require health insurance.) Kel Herzog MD, FACS [Physician] - 05/05/21 8:40 am (Appointment will be with an RN) PCP,NO [Primary Care Provider] - Diet: Low Fiber Diet Comment: Soft diet x 2 weeks, then can have regular diet again Addtl Attending Provider Instructions: SPECIAL CARE INSTRUCTIONS: * Cover incisions and change daily for comfort/drainage. * May use ibuprofen for pain as tolerated. * Expect some swelling and bruising. Call your doctor if: * Temperature above 101 degrees * Pain not relieved by pain medicine ordered * There is increased drainage or redness from any incision * You have any unanswered questions or concerns [phone]. FOLLOW UP VISIT: If not already scheduled, please call the office for a follow-up visit. For 2 to 3 weeksno sutures to remove OFFICE PHONE NUMBER: Dr. Herzog Office Addtl Auto Transmission Technician Provider Instructions: Please take the Protonix 40mg twice a day to heal your stomach after the bleeding that you had. Follow up with a primary care doctor within 1-2 weeks. Pending Studies at Discharge: Yes Studies:: surgical pathology Stand-Alone Forms: My [facility], Smoking Cessation Medications and DC Order Prescriptions: New acetaminophen 325 mg Tablet 650 mg PO Q4H PRN (Reason: pain) Qty: 20 RF: 0 pantoprazole 40 mg Tablet,Delayed Release (Dr/Ec) 40 mg PO BID Qty: 60 RF: 0 Discharge Orders: Discharge Order (Routine); Ordered 04/24/21 Ordered By: Cindy Sawant Admission Data Admit Date/Time: 04/19/21 13:27 Attending Provider: Cindy Sawant Admit Provider: Zane Lee Primary Care Provider: PCP,NO Other Providers: Zane Lee ; Kel Herzog ; Cabrera Salazar Other Interventions: Discharge Summary Assessment (RN) Last Done: 04/21/21 12:56 Coding Level of Care Code D/C DAY MANAGEMENT >30 MINS Diagnoses Acute cholecystitis due to biliary calculus K80.00 Acute blood loss anemia D62 Hematemesis K92.0 Choledocholithiasis K80.50 Vomiting R11.10 Elevated LFTs R79.89 Pancreatitis K85.90 Headache R51.9 Hypomagnesemia E83.42 Hypotension I95.9 Hypocalcemia E83.51 Hypokalemia E87.6 DVT prophylaxis Z29.9
== END 2021-04-24 14:37 | disposition home or self-care (01) | DRG 417 ==
LOC: ED 09:32 → 3W 13:27 → SUATTDRO 13:27 → 3W 14:31